=== PATIENT | male | born 1955 | race Caucasian/White ===

== ENCOUNTER 2016-11-12 07:30 | Inpatient (IN) | payer OTHER ==
[~2016-11-12 07:30] MED LIST: CHLORHEXIDINE GLUC HIBICLENS 118 ML BTL TP ONE; ceFAZolin 2 GM/DEXTROSE 100 ML IV ONE
[2016-11-12] MEDS ORDERED: THROMBIN (BOVINE) 20,000 UNIT VIAL TP ONE (09:08)
[2016-11-12] MEDS ORDERED: BACITRACIN 50,000 UNITS/10 ML SYR IRR ONE ×2 (09:08→14:24)
[2016-11-12] MEDS ORDERED: BUPIVACAINE/EPI 0.25% 30 ML SDV ONE (09:08)
[2016-11-12] MEDS ORDERED: CEFAZOLIN 2 GM/DEXTROSE/100 ML BAG IV ONE (09:19)
[2016-11-12] MEDS ORDERED: PROPOFOL/EMULSION 500 MG/50 ML BOTTLE IV ONE ×3 (09:26→16:01)
[2016-11-12] MEDS ORDERED: fentaNYL 250 MCG/5 ML INJ ONE (09:26)
[2016-11-12] MEDS ORDERED: LR 1,000 ML IV ONE (09:30)
[2016-11-12] MEDS ORDERED: MIDAZOLAM 2 MG/2 ML VIAL ONE (10:38)
[2016-11-12] MEDS ORDERED: PANTOPRAZOLE SODIUM 40 MG TAB PO PRN ×2 (10:39→16:29)
[2016-11-12] MEDS ORDERED: DIAZEPAM 5 MG TAB PO PRN (10:40)
[2016-11-12] MEDS ORDERED: ONDANSETRON 4 MG/2 ML VIAL IVP PRN (10:40)
[2016-11-12] MEDS ORDERED: BISACODYL 10 MG SUPP PR PRN (10:40)
[2016-11-12] MEDS ORDERED: TEMAZEPAM 15 MG CAP PO PRN (10:40)
[2016-11-12] MEDS ORDERED: NALOXONE HCL 0.4 MG/ML INJ IVP PRN (10:40)
[2016-11-12] MEDS ORDERED: LACTULOSE 20 GM/30 ML UDCUP PO PRN (10:40)
[2016-11-12] MEDS ORDERED: ACETAMINOPHEN 325 MG TAB PO PRN (10:40)
[2016-11-12] MEDS ORDERED: HYDROmorphONE/DILAUDID 6 MG/30 ML PCA IV PRN (10:40)
[2016-11-12] MEDS ORDERED: oxyCODONE IR 5 MG TAB PO PRN (10:40)
[2016-11-12] MEDS ORDERED: DIAZEPAM 10 MG/2 ML SYR IVP PRN (10:40)
[2016-11-12] MEDS ORDERED: ONDANSETRON DISINTEGRATING 4 MG TAB PO PRN (10:40)
[2016-11-12] MEDS ORDERED: MAGNESIUM HYDROXIDE 30 ML UDCUP PO PRN (10:40)
[2016-11-12] MEDS ORDERED: diphenhydrAMINE 25 MG CAP PO PRN (10:40)
[2016-11-12] MEDS ORDERED: ALBUMIN 5% 250 ML BOTTLE IV ONE (10:44)
[2016-11-12] MEDS ORDERED: DEXMEDETOMIDINE HCL 200 MCG/2 ML VIAL IV ONE (10:45)
[2016-11-12] MEDS ORDERED: NS W/ 20 KCl/L 1,000 ML IV SCH (10:45)
[2016-11-12] MEDS ORDERED: NS IV ONE (11:00)
[2016-11-12] MEDS ORDERED: TRANEXAMIC ACID IV ONE (11:00)
[2016-11-12] MEDS ORDERED: epHEDrine SULFATE 10 MG/ML SYR ONE (11:38)
[2016-11-12] MEDS ORDERED: PHENYLEPHRINE HCL 100 MCG/ML SYR ONE (11:38)
[2016-11-12] MEDS ORDERED: ROCURONIUM 50 MG/5 ML VIAL ONE (11:38)
[2016-11-12] MEDS ORDERED: SODIUM BICARBONATE 50 MEQ/50 ML SYR ONE (13:16)
[2016-11-12] MEDS ORDERED: CALCIUM CHLORIDE 1 GM/10 ML INJ ONE (13:16)
[2016-11-12] MEDS ORDERED: ONDANSETRON 4 MG/2 ML VIAL ONE (13:17)
[2016-11-12] MEDS ORDERED: RANITIDINE 50 MG/2 ML VIAL ONE (13:17)
[2016-11-12] MEDS ORDERED: METOCLOPRAMIDE 10 MG/2 ML VIAL ONE (13:17)
[2016-11-12] MEDS ORDERED: DEXAMETHASONE 4 MG/ML VIAL ONE (13:17)
[2016-11-12] MEDS ORDERED: fentaNYL 100 MCG/2 ML INJ ONE (17:57)
[2016-11-12] MEDS ORDERED: HYDROmorphONE/DILAUDID 1 MG/ML SYR ONE (17:57)
--- NOTE | 2016-11-12 19:08 | GOP ---
[f rep st] OPERATIVE REPORT DATE OF OPERATION: 11/12/2016 SURGEON: Kiersten Gamez MD PREOPERATIVE DIAGNOSIS: 1. Degenerative scoliosis. 2. Severe stenosis at L3-4, L4-5, L5-S1. 3. Terrible right foraminal stenosis at L5-S1 with right L5 radiculopathy. 4. Complete obliteration of the right L5-S1 foramina. 5. Severe disk degenerative disease at L3-4 4-5, and 5-1. 6. He also was having some left-sided radicular complaints, as well, that were not as severe as the right. POSTOPERATIVE DIAGNOSIS: 1. Degenerative scoliosis. 2. Severe stenosis at L3-4, L4-5, L5-S1. 3. Terrible right foraminal stenosis at L5-S1 with right L5 radiculopathy. 4. Complete obliteration of the right L5-S1 foramina. 5. Severe disk degenerative disease at L3-4 4-5, and 5-1. 6. He also was having some left-sided radicular complaints, as well, that were not as severe as the right. PROCEDURE PERFORMED: L3-4 L4-5, and L5-S1 decompressions with posterolateral and intervertebral art hrodesis with a central and left-sided facetectomy and decompression L3-4, bilateral decompressions L4-5 with a left-sided complete facetectomy and a right marilin decompression at L5-S1 with a complete right facetectomy and wide foraminotomy, as well as removal of a foraminal disk fragment ([id number], 226 34 x2), posterior segmental instrumentation L3, L4, L5, and S1 ([id number]), microscope, spinal stereotax y, same-incision bone graft harvest, placement of expandable mechanical intervertebral de vice at L3-4, 4-5, and 5-1. FINDINGS: DESCRIPTION OF PROCEDURE: Patient was taken to the operating room and placed in supine position. G eneral anesthesia was begun. He was flipped prone onto the Malcolm table. Care was taken to pad al l points of contact. His back was sterilely prepped and draped in the usual fashion. A localizing x-ray was taken. We made about an 8 to 8.5 cm incision above the L3-4, 4-5, and 5-1interspaces. Th e subcutaneous tissue was dissected using Bovie cautery down to the fascia, and a Subperiosteal diss ection was made down the L2. Inferior L2 lamina, L3, 4, 5, and S1 laminae were exposed. There was just remarkable facet arthropathy with the left side being concave at 3-4/4-5 and the facet joints b eing located very deep with the spinous processes projecting over the facet joints on the left side. At L3-4/L4 5 on the right side, the facet joints presented themselves more superficially and were quite hypertrophic. L5-S1 demonstrated bilateral facet arthropathy. We used a high-speed drill to denude these facet joints. We preserved the L2-3 facet joint rostrally. We decorticated the transv erse processes at L3, L4, L5, and the sacrum. We then performed an O-arm spin, and using frameless Stealth stereotaxy, we placed pedicle screws bilaterally at L5, S1, L4, and L3. We stimulated these . The left L3 screw stimulated at 13 mA; this is the lowest. An O-arm spin was made, and this scre w was immediately adjacent to the medial pedicle of L3. I removed the screw, probed the hole with a ball-tipped probe, and it appeared to be a completely solid cortical hole all the way through the p edicle without medial breach. There was no evidence of such a breach on circumferential probing wit h a ball-tip probe. We replaced this screw and got a stim number of 11. We therefore removed the s crew, and I just planned a new trajectory. His bone quality was excellent. I placed a screw in a n ew trajectory, and the stimulation numbers were above 15. We shot AP and lateral x-ray after placing the screw, and it looked like excellent positioning on the left L3 screw. We took a transitional r od and distracted at L5-S1 temporarily, demonstrating good motion at L5-S1. We then took 100 mm laz , put it down on the right, and distracted very substantially (over a centimeter) at L5-S1, reducing much of the degenerative kink at L5-S1 on the right side. We then went to the left side where we p laced another laz and distracted between L3-4/L4-5 on the left, and then locked this laz in place, a nd we shot an x-ray. I wanted to get a little more correction on the left-hand side as well at L3-4 , and a little more on the right at L5-S1. We relaxed our distraction on the rods, and then did do this. We achieved greater distraction at L5-S1 and greater direction on the left at L3-4, final tig htening the cap screws according to company specification, shot an AP and lateral x-ray, and there w as good reduction of his degenerative scoliotic curve. We then harvested the L5 and L4 spinous proc ess for autologous grafting purposes, and we harvested most of the L3 spinous process. We drilled a bilateral marilin at L4-5, and a right hemilaminectomy at L5-S1, and a left hemilaminectomy of L3-4. The hemilaminectomies at each of those levels was more than a hemilaminectomy; they involved about 3 /4 of the lamina, so I was able to get good central decompression at both of those levels. We cristina nued drilling and harvested all this bone for autologous grafting purposes. We then used a Kerrison punch to decompress the central spinal canal at L5-S1 on the right-hand side. The IAP of L5 was co mpletely adherent to the dura, and this was a very challenging dissection. I elected to leave it un til later in the case. I went up to L4-5 where I performed bilateral laminectomies; here, while the re was very severe stenosis, the dura was not adherent to the ligamentum flavum or the hypertrophic facet joints. We achieved an excellent decompression at that level, and then went to 3-4, where we found similar findings. There was stenosis, and we decompressed the left more than right. We perfo rmed a left L3-4 facetectomy and decompressed the exiting L3 nerve root. We then swept the thecal s ac medially and removed the L3-4 disk from a left-sided approach, as well as the cartilaginous endpl ates. We roughened needs to create arthrodesis. We then did likewise at L4-5, where we swept the t hecal sac medially; from a left-sided approach, we radically decompressed the left neural foramen fo r the exiting L4 nerve root by removing the facet joints. We then removed the cartilaginous endplat es and then roughened the subchondral bone to create arthrodesis. We sized each of these and chose a 7 x 28 mm device at L3-4 and then a 9 x 28 mm device at L4-5. We went to the right-hand side now at L5-S1 where we worked our way circumferentially around the IAP of L5, beginning at the L5 pedicle , following the L5 nerve into its neural foramen. We then came inferiorly down below the S1 pedicle , decompressing centrally and working our way out to the S1 pedicle. We then marched along the doug in of the S1 pedicle into the neural foramen and completely freed the compressive fragments in the c anal. It was very firmly adherent to the dura. We took a #15 blade knife and began to divide the a ttachments and removed this entire hunk of material out of the right lateral recess. It was bobby sive for both the L5 and the S1 root. A small portion of the ligamentum flavum was left on the dura centrally where it is stuck, but this was not compressive whatsoever. We identified the exiting L5 nerve root, incised the L5-S1 disk, removed the disk and the cartilaginous endplates. This level t ook much longer than L3-4 or 4-5, as we fractured the foraminal disk fragments down into the disk sp valery away from the L5 nerve root to an area where we could safely pick them up out of the disk space itself. We irrigated the disk space with antibiotic saline. Got a Sizer and sized for an 8 x 20 mm device at this level. We prepared each of the implants and inserted them under fluoroscopic guidan ce along with BMP and bone autograft, and then expanded them under fluoroscopic guidance. They were all in excellent position. There was good reduction of the degenerative scoliotic curve. We decor ticated all remaining posterolateral bone to finish our arthrodesis, and placed BMP and bony allogra ft posterolaterally bilaterally. We checked the tightness on our screws, placed a CrossLink, and th en placed a subfascial drain and closed the incision in multiple layers using Vicryl sutures. A gra nd total of 4.0 mg of BMP was used for the entire 3-level surgery. There were no other complication s. COMPLICATIONS: None. INSTRUMENTATION USED: Nemedia system with Elevate cages: A 7 x 28 mm cage at 3-4, a 9 mm cage at 4-5, and an 8 mm cage at 5-1. 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 It was unresponsive to conservative measures, and his MRI clearly showed the reason for this, and se rial MRIs demonstrated progression of a degenerative scoliotic curve. There is significant left lat eral listhesis of 4 on 5 measuring over a centimeter. There is terrible right foraminal stenosis a t L5-S1. There is [id number]-ab-[id number] severe left foraminal stenosis at L4-5 and moderately severe l eft foraminal stenosis at L3-4. There is severe central stenosis at L4-5 and left-sided more than r ight-sided stenosis at 3-4, and right greater than left foraminal, as well as lateral recess stenosi s at L5-S1. I suggested at one point, a 2-level fusion. The challenge with this approach, however, is the apex of his degenerative scoliotic curve was right at the L3-4 segment, and after reviewing it more carefully, I decided that we need to at least include the L3-4 level. He had terrible lopez es at L1-2 and 2-3 above, and indeed many surgeons might include these in the correction, but I want ed to try to minimize the amount of surgery that he got as this lowers the complication rate and imp roves success. He understood that down the road he may require additional surgery. He knew there w as risk of pseudoarthrosis, adjacent segment disease, nerve injury, and spinal fluid leak, and he kn ew that there was a chance he may continue to have symptoms despite decompression and despite fusion . He accepted all these and wanted to proceed. /[id number]/MODL
--- NOTE | 2016-11-12 19:08 | SOAPPROG ---
SOAP Progress Note Assessment/Plan: Post Op Visit: S: Awake and alert. Pt with expected lower back pain O: AFVSS/PERRLA/EOMI no droop CN 2-12 grossly intact +lt touch 5/5 BUE/BLE = CDI JACE in place A/P: 60 yo male that is s/p TLIF L3-S1 -orders in place -call with any questions or concerns -pt seen by Dr Gamez as well 11/12/16 19:06 Objective: Vital Signs Temp Pulse Resp BP Pulse Ox 37.0 C 108 H 16 94 11/12/16 18:28 11/12/16 18:28 11/12/16 18:28 11/12/16 18:28 11/11/16 11/12/16 11/13/16 05:59 05:59 05:59 Intake Total 2700 Output Total 585 Balance 2115 ICD10 Worksheet Patient Problems: Problems Problem Status Onset Arthrodesis status Acute Lumbar radicular pain Acute Lumbar stenosis Acute Arthritis of left knee Acute - ICD10 Problem Qualifiers (1) Lumbar stenosis (2) Lumbar radicular pain (3) Arthrodesis status
[2016-11-12] MEDS: HYDROmorphONE/DILAUDID 1 MG/ML SYR IVP PRN ×2 (19:48→23:56)
[2016-11-12] MEDS: HYDROCODONE/APAP 10/325 TAB PO PRN ×2 (19:49→23:56)
[2016-11-12] MEDS: TAMSULOSIN HCL 0.4 MG CAP PO SCH (19:49)
[2016-11-12] MEDS ORDERED: NON-FORMULARY NEW DRUG (Losartan Potassium [Cozaar] 100 MG) PO SCH (21:00)
[2016-11-12] MEDS: FAMOTIDINE 20 MG/NACL 50 ML IV SCH (21:42)
[2016-11-12] MEDS: morphINE SR 15 MG TAB PO SCH (21:44)
[2016-11-12] MEDS: LOSARTAN POTASSIUM 50 MG TAB PO SCH (21:44)
[2016-11-12] MEDS: METHOCARBAMOL 750 MG TAB PO PRN (21:46)
[2016-11-12] MEDS: SENNOSIDES/DOCUSATE SODIUM TAB PO SCH (21:47)
[2016-11-13 05:35] LABS: % IMMATURE GRANULYOCYTES 0.6 % (0.0-1.1); ABSOLUTE IMMATURE GRANULOCYTES 0.08 10^3/uL (0.00-0.10); ADD DIFF? NO; ADD MORPH? NO; ADD SCAN? NO; ATYPICAL LYMPHOCYTE FLAG 0 (0-99); FRAGMENT RBC FLAG 0 (0-99); HEMATOCRIT 39.2 % (40.0-51.0); HEMOGLOBIN 13.1 g/dL (13.7-17.5); LEFT SHIFT FLG 0 (0-99); LIPEMIA HEMOLYSIS FLAG 80 (0-99); MEAN CELL HEMOGLOBIN 29.2 pg (27.9-34.1); MEAN CELL HEMOGLOBIN CONCENTR. 33.4 g/dL (32.4-36.7); MEAN CELL VOLUME 87.5 fL (81.5-99.8); MEAN PLATELET VOLUME 10.5 fL (8.7-11.7); PLATELET CLUMPS FLAG 0 (0-99); PLATELET COUNT 171 10^3/uL (150-400); RED BLOOD CELL COUNT 4.48 10^6/uL (4.40-6.38); RED CELL DISTRIBUTION WIDTH 13.6 % (11.5-15.2)
[2016-11-13 05:47] LABS: ANION GAP 10 mEq/L (8-16); CALCIUM 8.4 mg/dL (8.5-10.4); CARBON DIOXIDE 22 mEq/l (22-31); CHLORIDE 108 mEq/L (97-110); GLOMERULAR FILTRATION RATE > 60; GLUCOSE 133 mg/dL (70-100); POTASSIUM 5.2 mEq/L (3.5-5.2); SODIUM 140 mEq/L (134-144)
[2016-11-13] MEDS: HYDROmorphONE/DILAUDID 1 MG/ML SYR IVP PRN ×2 (06:21→11:41)
[2016-11-13] MEDS: METHOCARBAMOL 750 MG TAB PO PRN ×2 (06:21→17:54)
--- NOTE | 2016-11-13 07:01 | NEUSURGPN ---
Date of Surgery: 11/12/16 Post Op Day: 1 Assessment/Plan: Assessment: 60 yo male that is s/p TLIF L3-S1 POD #1 Plan: -s/p TLIF L3-S1: pt with expected lower back pain, legs feel better. Pt is happy with results to this point -Post op xrays pending -brace fits well and will wear when out of bed -PT/OT today -work on switch to PO from IV meds -JACE still productive -pt seen by Dr Gamez as well -orders in place -call with any questions or concerns -warning signs given 11/12/16 19:06 Subjective: Awake and alert. NAD. Eating/drinking and voiding. No f/c/n/v/d. No blount/neck/ chest/abd or gu complaints. Objective: AFVSS/PERRLA/EOMI no droop CN 2-12 grossly intact +lt touch 5/5 BUE/BLE = CDI JACE in place Neuro Check Frequency: per routine Urinary Catheter in Place: No Catheter Insertion Date: 11/12/16 - Physician Discussed Patient with Dr.: Franco Patient Seen by : Franco Neurosurgery Physical Exam - Vitals, I&O, Labs I and O 11/12/16 11/13/16 11/14/16 05:59 05:59 05:59 Intake Total 3200 Output Total 1705 390 Balance 1495 -390 Intake: Oral (ml) 500 IV Intake (ml) 2700 Output: Urine (ml) 1025 300 Catheter 1025 300 Estimated Blood Loss (ml) 450 Wound Drainage (ml) 230 90 #1 Back Malcolm Ellsworth 230 90 Vital Signs Temp Pulse Resp BP Pulse Ox 37.0 C 68 17 117/65 94 11/13/16 04:00 11/13/16 04:00 11/13/16 04:00 11/13/16 04:00 11/13/16 04:00 Laboratory Results 11/13/16 04:50 11/13/16 04:50 ICD10 Worksheet Patient Problems: Problems Problem Status Onset Arthrodesis status Acute Lumbar radicular pain Acute Lumbar stenosis Acute Arthritis of left knee Acute - ICD10 Problem Qualifiers (1) Lumbar stenosis (2) Lumbar radicular pain (3) Arthrodesis status
[2016-11-13] MEDS: SENNOSIDES/DOCUSATE SODIUM TAB PO SCH ×2 (07:43→21:05)
[2016-11-13] MEDS: morphINE SR 15 MG TAB PO SCH ×2 (07:43→21:05)
[2016-11-13] MEDS: TAMSULOSIN HCL 0.4 MG CAP PO SCH (07:43)
[2016-11-13] MEDS: FAMOTIDINE 20 MG/NACL 50 ML IV SCH (07:44)
[2016-11-13] MEDS: HYDROCODONE/APAP 10/325 TAB PO PRN ×3 (07:44→17:54)
[2016-11-13] MEDS: FAMOTIDINE 20 MG TAB PO SCH (21:05)
[2016-11-13] MEDS: LOSARTAN POTASSIUM 50 MG TAB PO SCH (21:05)
[2016-11-14] MEDS: METHOCARBAMOL 750 MG TAB PO PRN (06:32)
[2016-11-14] MEDS: HYDROCODONE/APAP 10/325 TAB PO PRN ×2 (06:32→10:51)
--- NOTE | 2016-11-14 07:34 | NEUSURGPN ---
Date of Surgery: 11/12/16 Post Op Day: 2 Assessment/Plan: Assessment: 60 yo male that is s/p TLIF L3-S1 POD #2 Plan: -s/p TLIF L3-S1: pt with expected lower back pain, legs feel better. Pt continues to be happy with results to this point -Post op xrays look good -brace fits well and will wear when out of bed-no skin issues -PT/OT today -PO meds -JACE still productive will see if Dr Gamez wants it out -pt seen by Dr Gamez as well -orders in place -call with any questions or concerns -warning signs given 11/12/16 19:06 Subjective: Awake and alert. NAD. Pt with expected lower back pain. No blount/neck/chest/abd or gu complaints. Objective: AFVSS/PERRLA/EOMI no droop CN 2-12 grossly intact +lt touch 5/5 BUE/BLE = CDI JACE in place Neuro Check Frequency: per routine Urinary Catheter in Place: No Catheter Insertion Date: 11/12/16 - Physician Discussed Patient with DrKeisha: Franco Patient Seen by : Franco Neurosurgery Physical Exam - Vitals, I&O, Labs I and O 11/13/16 11/14/16 11/15/16 05:59 05:59 05:59 Intake Total 3200 500 Output Total 1705 1400 Balance 1495 -900 Intake: Oral (ml) 500 500 IV Intake (ml) 2700 0 Output: Urine (ml) 1025 800 Catheter 1025 800 Estimated Blood Loss (ml) 450 Wound Drainage (ml) 230 600 #1 Back Malcolm Ellsworth 230 600 Other: Intake Quantity Yes Sufficient Number of Voids Catheter 1 Vital Signs Temp Pulse Resp BP Pulse Ox 36.5 C 59 L 16 127/70 H 92 11/14/16 03:23 11/14/16 03:23 11/14/16 03:23 11/14/16 03:23 11/14/16 03:23 Laboratory Results 11/13/16 04:50 11/13/16 04:50 ICD10 Worksheet Patient Problems: Problems Problem Status Onset Arthrodesis status Acute Lumbar radicular pain Acute Lumbar stenosis Acute Arthritis of left knee Acute - ICD10 Problem Qualifiers (1) Lumbar stenosis (2) Lumbar radicular pain (3) Arthrodesis status
[2016-11-14] MEDS: SENNOSIDES/DOCUSATE SODIUM TAB PO SCH ×2 (08:41→21:14)
[2016-11-14] MEDS: TAMSULOSIN HCL 0.4 MG CAP PO SCH (08:41)
[2016-11-14] MEDS: FAMOTIDINE 20 MG TAB PO SCH ×2 (08:41→21:14)
[2016-11-14] MEDS: morphINE SR 15 MG TAB PO SCH ×2 (08:41→21:14)
[2016-11-14] MEDS: POLYETHYLENE GLYCOL 3350 17 GM PKT PO PRN (21:13)
[2016-11-14] MEDS: LOSARTAN POTASSIUM 50 MG TAB PO SCH (21:14)
[2016-11-15] MEDS: METHOCARBAMOL 750 MG TAB PO PRN (06:31)
--- NOTE | 2016-11-15 08:04 | NEUSURGPN ---
Assessment/Plan: Assessment: 60 yo male that is s/p TLIF L3-S1 POD #3 Plan: -s/p TLIF L3-S1: pt with expected lower back pain, legs feel better. Pt continues to be happy with results to this point -Post op xrays look good -brace fits well and will wear when out of bed-no skin issues -PT/OT today -PO meds -JACE was removed -Lovenox today -Bowel protocol -call with any questions or concerns -Likely DC today pending clinical course Subjective: Pt resting in bed. No BM yet but thinks he will have one soon. Objective: AAOx3 NAD VSS MAEx4 Motor 5/5 BLE +LT Incision cdi Urinary Catheter in Place: No Catheter Insertion Date: 11/12/16 Neurosurgery Physical Exam - Vitals, I&O, Labs I and O 11/14/16 11/15/16 11/16/16 05:59 05:59 05:59 Intake Total 500 1000 Output Total 1400 Balance -900 1000 Intake: Oral (ml) 500 1000 IV Intake (ml) 0 Output: Urine (ml) 800 Catheter 800 Wound Drainage (ml) 600 #1 Back Malcolm Ellsworth 600 Other: Intake Quantity Yes Yes Sufficient Number of Voids Catheter 1 1 Toilet 1 Vital Signs Temp Pulse Resp BP Pulse Ox 37.6 C 101 H 16 125/72 H 96 11/15/16 00:45 11/14/16 23:50 11/14/16 23:50 11/14/16 23:50 11/14/16 23:50 Laboratory Results 11/13/16 04:50 11/13/16 04:50 ICD10 Worksheet Patient Problems: Problems Problem Status Onset Arthrodesis status Acute Lumbar radicular pain Acute Lumbar stenosis Acute Arthritis of left knee Acute
[2016-11-15 08:07] VITALS: RESP 15
[2016-11-15] MEDS: morphINE SR 15 MG TAB PO SCH (08:28)
[2016-11-15] MEDS: TAMSULOSIN HCL 0.4 MG CAP PO SCH (08:29)
[2016-11-15] MEDS: FAMOTIDINE 20 MG TAB PO SCH (08:29)
[2016-11-15] MEDS: SENNOSIDES/DOCUSATE SODIUM TAB PO SCH (08:29)
[2016-11-15] MEDS: POLYETHYLENE GLYCOL 3350 17 GM PKT PO PRN (08:30)
[2016-11-15] MEDS ORDERED: ENOXAPARIN 40 MG/0.4 ML SYR SC SCH (09:00)
[2016-11-15 12:11] VITALS: BP 118/73; PULSE 106; TEMP 99.1; O2SAT 95
[2016-11-15] MEDS: HYDROCODONE/APAP 10/325 TAB PO PRN (12:27)
--- NOTE | 2016-12-02 21:57 | GDS ---
[f rep st] DISCHARGE SUMMARY PRIMARY DIAGNOSES: Degenerative scoliosis. Severe stenosis L3-4, L4-5, L5-S1. Terrible right fora kayden stenosis at L5-S1, with right L5 radiculopathy. Complete obliteration of the right L5-S1 neur o foramen. Severe degenerative disc disease L3-4, L4-5, L5-S1. All subsequent planes of left-sided radicular complaints that were not as severe as the right. OPERATION/PROCEDURES: L3-4, L4-5, L5-S1 decompression and posterior lateral intervertebral arthrode sis, with central and left-sided facetectomy and decompression at L3-4, bilateral decompressions at L4-5, with a left-sided complete facetectomy, and right marilin-decompression L5-S1, with a complete ri ght facetectomy and wide foraminotomy, as well as removal of foraminal disc fragments. Posterior se gmental instrumentation, L3, L4, L5 and S1. Use of microscope spinal stereotaxis same-incision bone graft harvest, and placement of expandable biomechanical intervertebral device at L3-4, L4-5, and L 5-S1, occurred with Dr. Cezar Gamez at [facility] on 11/12/2016. 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 He presented with recalcitrant right L5 radiculopathy, was unrespon sive to conservative measures. An MRI clearly showed the reason for this. Serial MRIs demonstrated progression of a degenerative scoliotic curve. There is a significant left lateral listhesis of L4 on L5 measuring over a centimeter. There is terrible right foraminal stenosis, L5-S1, moderate-to- mildly severe left foraminal stenosis at L4-5, and moderately severe left foraminal stenosis at L3-4 . There is severe central canal stenosis at L4-5, and left more than right stenosis at L3-4, ____ and right greater than left in the right greater than left foraminal stenosis, as well as later al recess stenosis at L5-S1. A suggestion for a three-level fusion was given to the patient. He un derwent the above-mentioned procedure, and tolerated it fine. He was admitted postoperatively and worked with physical therapy. On postoperative day #1, on 11/13, he underwent x-rays of the lumbar spine, which showed status post instrumentation and fusion of the lumbar spine from prior study without hardware complication. The patient was seen on a daily basis. He worked with PT and OT. On 11/15/2016, he met criteria for discharge, and was discharged accordingly. He was happy with the results thus far. His postoperative x-rays look good. His bra ce was fitting well, and will wear this whenever out of bed. He was started on Lovenox prophylactic ally. He also had a JACE, which was removed. He was on a bowel protocol, and was doing fine with bay t. He was discharged without incident. CONSULTATIONS: None. COMPLICATIONS: None. DISCHARGE CONDITION: Stable and improved. DISCHARGE INSTRUCTIONS: Standard discharge instructions given to the patient following instrumented lumbar fusion. We talked about worsening symptoms, new pain, weakness, numbness, tingling, loss of bowel or bladder control, problems with gait or balance. We talked about when to call or return. He will wear his brace whenever out of bed. He should avoid any anti-inflammatory drugs. He should avoid any bending, twisting or lifting. The patient understands and agrees. Will likely follow up with us at 2 weeks and at 2 months, 3-6 months, 9 months to a year, a [id number]-rgf-d-half and 2 years w ith x-rays when clinically appropriate. All questions and concerns were answered. /[id number]/MODL
== END 2016-11-15 16:04 | disposition home or self-care (01) | DRG 460 ==
LOC: F3E 08:29 → F3N 11:19
PROVIDERS: ADMIT Neurological Surgery; ATTEND Neurological Surgery
PROC: 0SB40ZZ Excision of Lumbosacral Disc, Open Approach (ICD-10-PCS; principal; 2016-11-12 10:30)
PROC: 0SG30AJ Fusion of Lumbosacral Joint with Interbody Fusion Device, Posterior Approach, Anterior Column, Open Approach (ICD-10-PCS; principal; 2016-11-12 10:30)
PROC: 0SG10AJ Fusion of 2 or more Lumbar Vertebral Joints with Interbody Fusion Device, Posterior Approach, Anterior Column, Open Approach (ICD-10-PCS; principal; 2016-11-12 10:30)
PROC: 00NY0ZZ Release Lumbar Spinal Cord, Open Approach (ICD-10-PCS; principal; 2016-11-12 10:30)
PROC: 3E0U0GB Introduction of Recombinant Bone Morphogenetic Protein into Joints, Open Approach (ICD-10-PCS; principal; 2016-11-12 10:30)
PROC: 0SG1071 Fusion of 2 or more Lumbar Vertebral Joints with Autologous Tissue Substitute, Posterior Approach, Posterior Column, Open Approach (ICD-10-PCS; principal; 2016-11-12 10:30)
PROC: 0SB20ZZ Excision of Lumbar Vertebral Disc, Open Approach (ICD-10-PCS; principal; 2016-11-12 10:30)
PROC: 0SG3071 Fusion of Lumbosacral Joint with Autologous Tissue Substitute, Posterior Approach, Posterior Column, Open Approach (ICD-10-PCS; principal; 2016-11-12 10:30)
DX: M43.16 Spondylolisthesis, lumbar region (principal); M41.26 Other idiopathic scoliosis, lumbar region; M48.06 Spinal stenosis, lumbar region; I10 Essential (primary) hypertension
CPT/HCPCS: 97116-GP; 97161-GP; 97166-GO; 97535-GO; C1713; J0690; J1100; J1170; J1650; J2250; J2370; J2405; J2704; J2765; J2780; J3010; P9041

== ENCOUNTER → 2016-12-29 | Outpatient (CLI) | payer OTHER | LOC: FIMAGING 09:40 | PROVIDERS: ATTEND Nurse Practitioner | DX: M41.26 Other idiopathic scoliosis, lumbar region (principal); M43.16 Spondylolisthesis, lumbar region; M48.06 Spinal stenosis, lumbar region; Z98.1 Arthrodesis status ==

== ENCOUNTER → 2017-03-02 | Outpatient (CLI) | payer OTHER | LOC: FLAB 09:55 → FIMAGING 09:55 → EDSTATUS 11:55 | PROVIDERS: ATTEND Nurse Practitioner | DX: Z09 Encounter for follow-up examination after completed treatment for conditions other than malignant neoplasm (principal); Z98.1 Arthrodesis status ==

== ENCOUNTER → 2017-05-12 | Outpatient (CLI) | payer OTHER | LOC: FIMAGING 10:41 | PROVIDERS: ATTEND Nurse Practitioner | DX: Z09 Encounter for follow-up examination after completed treatment for conditions other than malignant neoplasm (principal); Z98.1 Arthrodesis status ==

== ENCOUNTER 2017-06-11 17:49 | Emergency (ER) | payer OTHER ==
[2017-06-11] MEDS ORDERED: NS 1,000 ML IV ONE ×4 (19:44)
--- NOTE | 2017-06-11 19:46 | EDPHY ---
H & P Time Seen by Provider: 06/11/17 18:58 HPI/ROS: CHIEF COMPLAINT: Abdominal pain HISTORY OF PRESENT ILLNESS: Patient had similar symptoms 6 months ago and then 1 month ago but all was resolved after an hour and he was able to sleep and it would be gone when he woke up. At 4:30 a.m. he woke up with consistent and then crampy central abdominal pain which does not radiate. Associated with single episode of nausea vomiting and with 2 normal bowel movements. No melena or coffee-ground emesis or bright red blood per rectum. He did take nonsteroidal today but is essentially been off them since his fusion on his back 7 months ago. Symptoms moderate. Worse with eating or drinking today. He ate 6 Triscuits, and that made him worse. REVIEW OF SYSTEMS: Eye: no change in vision ENT: no sore throat Cardiac: no chest pain or syncope Pulmonary: no cough or SOB Abdomen: HPI Musculoskeletal: no back pain Skin: no rash Neuro: no headache Constitutional: no fever : no urinary symptoms A comprehensive 10 point review of systems is otherwise negative aside from elements mentioned in the history of present illness. PAST MEDICAL HISTORY: Appendectomy, pseudogout, hepatitis-C. Migraines, appendectomy, tonsillectomy. Bilateral knee surgery and bilateral cataracts, spine fusion 7 months ago Social history: No alcohol General Appearance: Alert and conversant, cooperative. Eyes: No scleral icterus. ENT, Mouth: Normal mucous membranes. Respiratory: Normal respiratory effort, breath sounds equal, lungs are clear to auscultation. Cardiovascular: Regular rate and rhythm. Gastrointestinal: Epigastric tenderness but negative Beckett sign. No rebound or guarding. Bowel sounds are present. Neurological: Alert and oriented x3. Normally conversant. Face symmetric, normal movement and sensation in all extremities. Skin: Warm and dry, no rashes. Musculoskeletal: No peripheral edema and no joint swelling. Psychiatric: Not agitated. Emergency Department course/MDM: CT scanning discussed and consented. I-STAT creatinine 1.0. 2054: Negative CT per Dr. Abreu, results discussed with the patient. 2125: Normal urine, normal EKG. Plan to discharge with outpatient primary care or GI follow-up. 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 White blood cell count noted, they wonder if it is related to food that he ate which is possible. At this point I think acute serious bacterial illness is low given picture of his entire workup Smoking Status: Former smoker Constitutional: Initial Vital Signs Temperature (C) 37 C 06/11/17 17:50 Heart Rate 88 06/11/17 17:50 Respiratory Rate 16 06/11/17 17:50 Blood Pressure 154/90 H 06/11/17 17:50 O2 Sat (%) 95 06/11/17 17:50 O2 Delivery Mode Room Air O2 (L/minute) 2 Allergies/Adverse Reactions: No Known Allergies Allergy (Verified 06/11/17 17:59) Home Medications: Medication Instructions Recorded Losartan Potassium [Cozaar] 100 mg PO HS 12/28/13 Pantoprazole Sodium [Protonix 40mg 20 mg PO HS PRN 02/13/16 (*)] amLODIPine BESYLATE [Norvasc 10 mg 10 mg PO HS 02/13/16 (*)] GABAPENTIN 400 mg PO 06/11/17 Naproxen 250 mg PO 06/11/17 Tamsulosin HCl [Flomax 0.4 MG (*)] 0.4 mg PO 06/11/17 Medical Decision Making - Diagnostics EKG Interpretation: 12-lead EKG interpreted by me; official reading is in trace master. My interpretation is sinus rhythm rate 79 with low frontal voltage otherwise normal. Imaging Results: Imaging Impressions Abdomen CT 06/11/17 19:44 Impression: 1. No explanation for acute epigastric pain. 2. Incidental right adrenal solid mass at 2 x 2 cm, containing punctate central calcification. This is likely a benign lesion. Follow-up CT scan in 12 months can be considered. If additional characterization is needed at this time, MRI following adrenal protocol with and without contrast is suggested. 3. Please see above otherwise. Findings and recommendations discussed with Dr. Jose Juan Young at 2050 hour, 2016. Final report concurs with initial preliminary interpretation. - Data Points Laboratory Results: Laboratory Results 06/11/17 19:40 06/11/17 19:40 06/11/17 06/11/17 06/11/17 21:00 19:40 19:40 WBC 15.86 10^3/uL H 10^3/uL (3.80-9.50) RBC 6.51 10^6/uL H 10^6/uL (4.40-6.38) Hgb 17.3 g/dL g/dL (13.7-17.5) POC Hgb Hct 51.5 % H % (40.0-51.0) POC Hct MCV 79.1 fL L fL (81.5-99.8) MCH 26.6 pg L pg (27.9-34.1) MCHC 33.6 g/dL g/dL (32.4-36.7) RDW 16.8 % H % (11.5-15.2) Plt Count 214 10^3/uL 10^3/uL (150-400) MPV 10.1 fL fL (8.7-11.7) Neut % (Auto) 79.8 % H % (39.3-74.2) Lymph % (Auto) 9.5 % L % (15.0-45.0) [place] % (Auto) 9.0 % % (4.5-13.0) Eos % (Auto) 0.6 % % (0.6-7.6) Baso % (Auto) 0.3 % % (0.3-1.7) Nucleat RBC Rel Count 0.0 % % (0.0-0.2) Absolute Neuts (auto) 12.67 10^3/uL H 10^3/uL (1.70-6.50) Absolute Lymphs (auto) 1.51 10^3/uL 10^3/uL (1.00-3.00) Absolute Monos (auto) 1.42 10^3/uL H 10^3/uL (0.30-0.80) Absolute Eos (auto) 0.10 10^3/uL 10^3/uL (0.03-0.40) Absolute Basos (auto) 0.04 10^3/uL 10^3/uL (0.02-0.10) Absolute Nucleated RBC 0.00 10^3/uL 10^3/uL (0-0.01) Immature Gran % 0.8 % % (0.0-1.1) Immature Gran # 0.12 10^3/uL H 10^3/uL (0.00-0.10) POC Sodium Sodium 138 mEq/L mEq/L (134-144) POC Potassium Potassium 4.2 mEq/L mEq/L (3.5-5.2) POC Chloride Chloride 105 mEq/L mEq/L (97-110) Carbon Dioxide 19 mEq/l L mEq/l (22-31) Anion Gap 14 mEq/L mEq/L (8-16) POC BUN BUN 18 mg/dL mg/dL (7-23) Creatinine 1.0 mg/dL mg/dL (0.7-1.3) POC Creatinine Estimated GFR > 60 Glucose 83 mg/dL mg/dL (70-100) POC Glucose Calcium 9.4 mg/dL mg/dL (8.5-10.4) Total Bilirubin 1.4 mg/dL mg/dL (0.1-1.4) Conjugated Bilirubin 0.3 mg/dL mg/dL (0.0-0.5) Unconjugated Bilirubin 1.1 mg/dL mg/dL (0.0-1.1) AST 19 IU/L IU/L (17-59) ALT 31 IU/L IU/L (21-72) Alkaline Phosphatase 71 IU/L IU/L (38-126) Total Protein 7.2 g/dL g/dL (6.3-8.2) Albumin 4.6 g/dL g/dL (3.5-5.0) Lipase 21 IU/L L IU/L (23-300) Urine Color PALE YELLOW Urine Appearance CLEAR Urine pH 5.0 (5.0-7.5) Ur Specific [place] > 1.035 H (1.002-1.030) Urine Protein NEGATIVE (NEGATIVE) Urine Ketones NEGATIVE (NEGATIVE) Urine Blood NEGATIVE (NEGATIVE) Urine Nitrate NEGATIVE (NEGATIVE) Urine Bilirubin NEGATIVE (NEGATIVE) Urine Urobilinogen NEGATIVE EU EU (0.2-1.0) Ur Leukocyte Esterase NEGATIVE (NEGATIVE) Urine Glucose NEGATIVE (NEGATIVE) 06/11/17 19:35 WBC RBC Hgb POC Hgb 18.4 gm/dL H gm/dL (13.7-17.5) Hct POC Hct 54 % H % (40-51) MCV MCH MCHC RDW Plt Count MPV Neut % (Auto) Lymph % (Auto) [place] % (Auto) Eos % (Auto) Baso % (Auto) Nucleat RBC Rel Count Absolute Neuts (auto) Absolute Lymphs (auto) Absolute Monos (auto) Absolute Eos (auto) Absolute Basos (auto) Absolute Nucleated RBC Immature Gran % Immature Gran # POC Sodium 141 mEq/L mEq/L (134-144) Sodium POC Potassium 3.9 mEq/L mEq/L (3.3-5.0) Potassium POC Chloride 108 mEq/L mEq/L (97-110) Chloride Carbon Dioxide Anion Gap POC BUN 20 mg/dL mg/dL (7-23) BUN Creatinine POC Creatinine 1.0 mg/dL mg/dL (0.7-1.3) Estimated GFR Glucose POC Glucose 85 mg/dL mg/dL (70-100) Calcium Total Bilirubin Conjugated Bilirubin Unconjugated Bilirubin AST ALT Alkaline Phosphatase Total Protein Albumin Lipase Urine Color Urine Appearance Urine pH Ur Specific [place] Urine Protein Urine Ketones Urine Blood Urine Nitrate Urine Bilirubin Urine Urobilinogen Ur Leukocyte Esterase Urine Glucose Medications Given: Discontinued Medications Hydromorphone HCl (Dilaudid) 0.5 mg IVP EDNOW ONE Stop: 06/11/17 19:53 Last Admin: 06/11/17 19:59 Dose: 0.5 mg Sodium Chloride (Ns) 1,000 mls @ 0 mls/hr IV EDNOW ONE; Wide Open PRN Reason: Protocol Stop: 06/11/17 19:45 Last Admin: 06/11/17 19:58 Dose: 1,000 mls Point of Care Test Results: 06/11/17 19:35 POC Sodium 141 POC Potassium 3.9 POC Chloride 108 POC BUN 20 POC Creatinine 1.0 POC Glucose 85 Departure - Departure Disposition: Home, Routine, Self-Care Clinical Impression: Abdominal pain Qualifiers: Abdominal location: epigastric Qualified Code(s): R10.13 - Epigastric pain Condition: Good Instructions: Abdominal Pain (ED) Additional Instructions: Please follow-up within the week with Gastroenterology or your primary care doctor, return if you get worsening symptoms. Try Protonix daily for at least the next 7-10 days. Referrals: Prosper Sanchez MD [Primary Care Provider] - As per Instructions Smith Brown MD, FACG [Medical Doctor] - As per Instructions
[2017-06-11] MEDS ORDERED: IOPAMIDOL (ISOVUE-300) 100 ML BTL ONE ×2 (19:50)
[2017-06-11] MEDS ORDERED: HYDROmorphONE/DILAUDID 1 MG/ML INJ ONE ×2 (19:51)
[2017-06-11] MEDS ORDERED: HYDROmorphONE/DILAUDID 1 MG/ML INJ IVP ONE ×2 (19:52)
[2017-06-11 19:55] LABS: PLATELET COUNT 214 10^3/uL (150-400)
--- NOTE | 2017-06-11 21:11 | CPEKG ---
Heart Rate: 79 RR Interval: 759 P-R Interval: 184 QRSD Interval: 98 QT Interval: 412 QTC Interval: 473 P [place]: 71 QRS [place]: 34 T Wave [place]: 25 EKG Severity - OTHERWISE NORMAL ECG - EKG Impression: SINUS RHYTHM EKG Impression: LOW VOLTAGE IN FRONTAL LEADS Electronically Signed By: Jose Juan Young 11-Jun-2017 21:12:15
--- NOTE | 2017-06-11 21:11 | CPEKG ---
Heart Rate: 79 RR Interval: 759 P-R Interval: 184 QRSD Interval: 98 QT Interval: 412 QTC Interval: 473 P [place]: 71 QRS [place]: 34 T Wave [place]: 25 EKG Severity - OTHERWISE NORMAL ECG - EKG Impression: SINUS RHYTHM EKG Impression: LOW VOLTAGE IN FRONTAL LEADS Electronically Signed By: Jose Juan Young 11-Jun-2017 21:12:15
[2017-06-11 21:21] VITALS: PULSE 81; TEMP 97.9
[2017-06-11 21:43] VITALS: BP 148/72; RESP 16; O2SAT 94
== END 2017-06-11 21:43 | disposition home or self-care (01) ==
DX: R10.13 Epigastric pain (principal); E86.9 Volume depletion, unspecified; Z87.891 Personal history of nicotine dependence; Z90.49 Acquired absence of other specified parts of digestive tract
CPT/HCPCS: 82947-QW; 96374; J1170; Q9967

== ENCOUNTER → 2017-08-05 | Outpatient (CLI) | payer OTHER | LOC: FIMAGING 12:38 → EDSTATUS 12:39 | PROVIDERS: ATTEND Nurse Practitioner | DX: Z09 Encounter for follow-up examination after completed treatment for conditions other than malignant neoplasm (principal); Z98.1 Arthrodesis status ==

== ENCOUNTER → 2017-11-16 | Outpatient (CLI) | payer OTHER | LOC: FIMAGING 10:02 | PROVIDERS: ATTEND Nurse Practitioner | DX: Z98.1 Arthrodesis status (principal); M41.9 Scoliosis, unspecified; M51.36 Other intervertebral disc degeneration, lumbar region; M51.34 Other intervertebral disc degeneration, thoracic region ==

== ENCOUNTER → 2017-12-09 | Outpatient (CLI) | payer OTHER | LOC: FIMAGING 08:10 | PROVIDERS: ATTEND Nurse Practitioner | DX: Z98.1 Arthrodesis status (principal); M51.36 Other intervertebral disc degeneration, lumbar region; M53.87 Other specified dorsopathies, lumbosacral region; M48.07 Spinal stenosis, lumbosacral region; M43.17 Spondylolisthesis, lumbosacral region ==

== ENCOUNTER → 2017-12-18 | Outpatient (CLI) | payer OTHER | LOC: FIMAGING 19:19 | PROVIDERS: ATTEND Nurse Practitioner | DX: Z98.1 Arthrodesis status (principal); M48.04 Spinal stenosis, thoracic region; M51.34 Other intervertebral disc degeneration, thoracic region ==

== ENCOUNTER → 2018-01-05 | Outpatient (CLI) | payer OTHER | LOC: FIMAGING 09:06 | PROVIDERS: ATTEND Nurse Practitioner | DX: M51.36 Other intervertebral disc degeneration, lumbar region (principal); M51.34 Other intervertebral disc degeneration, thoracic region; M48.061 Spinal stenosis, lumbar region without neurogenic claudication; M48.04 Spinal stenosis, thoracic region; Z98.1 Arthrodesis status ==

== ENCOUNTER 2018-01-09 20:08 | Observation (INO) | payer OTHER ==
[2018-01-09 21:03] LABS: PLATELET COUNT 206 10^3/uL (150-400)
[2018-01-09 21:06] LABS: INR 1.08 (0.83-1.16); PROTIME(PATIENT) 14.2 SEC (12.0-15.0)
--- NOTE | 2018-01-09 21:08 | EDPHY ---
H & P Time Seen by Provider: 01/09/18 20:29 HPI/ROS: HPI Shortness of breath. 62-year-old male by private vehicle with his . [place] [address] He reports that he has felt shortness of breath since Thursday. He reports he had a home pulse oximeter kit arrive on Thursday night. He reports that this red 72% on room air. He reports he took some deep breaths and this came up. He reports feeling more short of breath today. No chest pain. He has not had a fever. Denies cough. Denies lower extremity pain or swelling. 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 He states that he thinks he may be having a reaction to wood sawdust when doing this and he has had some coughing and shortness of breath when doing this activity. ROS: Constitutional: No fever, no chills. No weakness. Eyes: No discharge. No changes in vision. ENT: No sore throat. No nasal congestion or rhinorrhea. Respiratory: No cough. As above. Cardiac: No chest pain, no palpitations. Gastrointestinal: No abdominal pain, no vomiting, no diarrhea. Genitourinary: No hematuria. No dysuria or increased frequency with urination. Musculoskeletal: No back pain. No neck pain. No myalgias or arthralgias. Skin: No rashes. Neurological: No headache. No focal weakness or altered sensation. Past medical history: Hypertension, pseudogout, hepatitis-C, migraine headaches , appendectomy, tonsillectomy, maxillary surgery, cataract surgery, knee surgery. Social history: Nonsmoker. No marijuana. No alcohol. Here with his . Lives [place] [address] outside of [place]. 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 Physical Exam: General Appearance: Alert, no distress. This patient is responding to questions appropriately and in full sentences. This patient appears well- hydrated and well-nourished. Eyes: Pupils equal and round no pallor or injection. No lid edema, erythema or injection. Respiratory: There are no retractions, lungs are clear to auscultation with good air movement bilaterally. No tachypnea. Cardiovascular: Regular rate and rhythm. No murmur. Gastrointestinal: Abdomen is soft and nontender, no masses, bowel sounds normal. No focal tenderness at McBurney's point. No Beckett sign. Neurological: Motor sensory function is grossly intact. Cranial nerves are normal. Gait is normal. Skin: Warm and dry, no rashes. Musculoskeletal: Neck is supple and nontender. Extremities are symmetrical. All joints range without pain or impingement. Psychiatric: No agitation. No depression. Database: EKG: EKG time is 9:09 p.m.; EKG shows a narrow complex normal sinus rhythm with a ventricular rate of 83. The NH, QRS, QT intervals are within normal limits. There are no ST-T wave changes indicative of ischemic or injury pattern. No evidence of right heart strain. Interpreted by me. Imaging: Chest x-ray AP portable; the cardiac mediastinal silhouette is unremarkable. No evidence of infiltrate or pneumothorax. No acute cardiopulmonary disease process noted. Interpreted by me. CT angiogram of chest; no CT evidence of pulmonary embolism. Trace right-sided pleural effusion with likely associated atelectasis, cannot exclude small infiltrates, coronary artery disease. Stable right adrenal adenoma. No pericardial effusion. Results discussed with staff radiologist Dr. Laith Lopez. Procedures: Emergency department course: Triage vital signs reviewed. Room air pulse oximetry 85%. Patient moderately hypertensive. Vital signs otherwise normal. Placed on 2 L of oxygen by nasal cannula, pulse oximetry comes up to 92-94%. EKG obtained and reviewed by myself. Blood work reviewed. Polycythemia likely secondary to living at altitude. D- dimer elevated. Patient endorses CT to evaluate for pulmonary embolism. 10:30 p.m., we got the patient up and ambulated him around the emergency department. Room air pulse oximetry falls to 82%. I discussed admission with the patient to our hospitalist service for further evaluation. He endorses. 10:45 p.m., spoke with on-call hospitalist, Dr. Sukhi Grey. Case discussed in detail with him. He accepts this patient for admission. Hypoxia unlikely secondary to pneumonia. Antibiotic administration will be deferred to hospitalist service. The patient's remaining emergency department course under my care has been uneventful. He was admitted in stable condition to the hospitalist service. Differential Diagnosis: The differential diagnosis on this patient includes but is not limited to reactive airway disease, congestive heart failure, pulmonary embolism, acute coronary syndrome. This represents a partial list of diagnoses considered. These considerations are based on history, physical exam, past history, reassessment and diagnostic testing. Smoking Status: Former smoker Constitutional: Initial Vital Signs Temperature (C) 36.8 C 01/09/18 20:15 Heart Rate 93 01/09/18 20:15 Respiratory Rate 20 01/09/18 20:15 Blood Pressure 163/104 H 01/09/18 20:15 O2 Sat (%) 85 L 01/09/18 20:15 O2 Delivery Mode Room Air O2 (L/minute) 2 Allergies/Adverse Reactions: No Known Allergies Allergy (Verified 01/09/18 20:15) Home Medications: Medication Instructions Recorded Losartan Potassium [Cozaar] 100 mg PO HS 12/28/13 Pantoprazole Sodium [Protonix 40mg 20 mg PO HS PRN 02/13/16 (*)] amLODIPine BESYLATE [Norvasc 10 mg 10 mg PO HS 02/13/16 (*)] GABAPENTIN 400 mg PO 06/11/17 Naproxen 250 mg PO 06/11/17 Tamsulosin HCl [Flomax 0.4 MG (*)] 0.4 mg PO 06/11/17 Medical Decision Making - Diagnostics Imaging Results: Imaging Impressions Chest X-Ray 01/09/18 20:56 Impression: Mild perihilar bronchial wall thickening with bibasilar subsegmental atelectasis versus minimal infiltrate(s). At Dr. Holland's request, a CTPA will be subsequently performed and separately reported. Chest/Thorax CTA 01/09/18 21:16 Impression: 1. There is no CT evidence of pulmonary artery thromboemboli. 2. Coronary artery atherosclerotic calcifications. 3. Trace right pleural effusion with bibasilar subsegmental atelectasis ( minimal infiltrates not excluded). 4. Stable-appearing 2 cm right adrenal gland adenoma, compared to 06/11/17. Findings were discussed with Dalton Holland MD at 22:01, on 01/09/2018. - Data Points Laboratory Results: Laboratory Results 01/09/18 20:25 01/09/18 20:25 01/09/18 01/09/18 01/09/18 21:11 20:25 20:25 WBC RBC Hgb Hct MCV MCH MCHC RDW Plt Count MPV Neut % (Auto) Lymph % (Auto) [place] % (Auto) Eos % (Auto) Baso % (Auto) Nucleat RBC Rel Count Absolute Neuts (auto) Absolute Lymphs (auto) Absolute Monos (auto) Absolute Eos (auto) Absolute Basos (auto) Absolute Nucleated RBC Immature Gran % Immature Gran # PT 14.2 SEC SEC (12.0-15.0) INR 1.08 (0.83-1.16) APTT 27.2 SEC SEC (23.0-38.0) D-Dimer 0.56 ug/mLFEU H ug/mLFEU (0.00-0.50) Sodium 145 mEq/L mEq/L (135-145) Potassium 4.5 mEq/L mEq/L (3.3-5.0) Chloride 110 mEq/L mEq/L (97-110) Carbon Dioxide 21 mEq/l L mEq/l (22-31) Anion Gap 14 mEq/L mEq/L (8-16) BUN 22 mg/dL mg/dL (7-23) Creatinine 1.3 mg/dL mg/dL (0.7-1.3) Estimated GFR 56 Glucose 76 mg/dL mg/dL (70-100) Calcium 9.4 mg/dL mg/dL (8.5-10.4) POC Troponin I 0.01 ng/mL ng/mL (0.00-0.08) NT-Pro-B Natriuret Pep 46 pg/mL pg/mL (0-125) 01/09/18 20:25 WBC 16.69 10^3/uL H 10^3/uL (3.80-9.50) RBC 6.50 10^6/uL H 10^6/uL (4.40-6.38) Hgb 16.9 g/dL g/dL (13.7-17.5) Hct 52.2 % H % (40.0-51.0) MCV 80.3 fL L fL (81.5-99.8) MCH 26.0 pg L pg (27.9-34.1) MCHC 32.4 g/dL g/dL (32.4-36.7) RDW 16.5 % H % (11.5-15.2) Plt Count 206 10^3/uL 10^3/uL (150-400) MPV 10.2 fL fL (8.7-11.7) Neut % (Auto) 77.9 % H % (39.3-74.2) Lymph % (Auto) 9.8 % L % (15.0-45.0) [place] % (Auto) 7.4 % % (4.5-13.0) Eos % (Auto) 3.9 % % (0.6-7.6) Baso % (Auto) 0.5 % % (0.3-1.7) Nucleat RBC Rel Count 0.0 % % (0.0-0.2) Absolute Neuts (auto) 13.00 10^3/uL H 10^3/uL (1.70-6.50) Absolute Lymphs (auto) 1.63 10^3/uL 10^3/uL (1.00-3.00) Absolute Monos (auto) 1.24 10^3/uL H 10^3/uL (0.30-0.80) Absolute Eos (auto) 0.65 10^3/uL H 10^3/uL (0.03-0.40) Absolute Basos (auto) 0.08 10^3/uL 10^3/uL (0.02-0.10) Absolute Nucleated RBC 0.00 10^3/uL 10^3/uL (0-0.01) Immature Gran % 0.5 % % (0.0-1.1) Immature Gran # 0.09 10^3/uL 10^3/uL (0.00-0.10) PT INR APTT D-Dimer Sodium Potassium Chloride Carbon Dioxide Anion Gap BUN Creatinine Estimated GFR Glucose Calcium POC Troponin I NT-Pro-B Natriuret Pep Point of Care Test Results: Chemistry 01/09/18 21:11 POC Troponin I 0.01 ng/mL ng/mL (0.00-0.08) Departure - Departure Disposition: [facility] Inpatient Acute Clinical Impression: Hypoxia, Dyspnea
--- NOTE | 2018-01-09 21:11 | CPEKG ---
Heart Rate: 83 RR Interval: 723 P-R Interval: 188 QRSD Interval: 90 QT Interval: 364 QTC Interval: 428 P [place]: 53 QRS [place]: 3 T Wave [place]: 22 EKG Severity - NORMAL ECG - EKG Impression: SINUS RHYTHM Electronically Signed By: Dalton Holland 09-Jan-2018 23:08:11
[2018-01-09] MEDS ORDERED: IOPAMIDOL (ISOVUE 370) 100 ML BTL IV ONE (21:19)
[2018-01-10] MEDS ORDERED: GABAPENTIN 100 MG CAP PO PRN (00:04)
[2018-01-10] MEDS ORDERED: ONDANSETRON 4 MG/2 ML VIAL IVP PRN (00:04)
[2018-01-10] MEDS ORDERED: ONDANSETRON DISINTEGRATING 4 MG TAB PO PRN (00:04)
[2018-01-10] MEDS ORDERED: ACETAMINOPHEN 325 MG TAB PO PRN (00:04)
[2018-01-10] MEDS ORDERED: ALBUTEROL 3 ML DEYVIAL IH PRN (00:13)
[2018-01-10] MEDS ORDERED: PANTOPRAZOLE SODIUM 40 MG TAB PO SCH (00:15)
[2018-01-10] MEDS ORDERED: PANTOPRAZOLE SODIUM 40 MG TAB PO PRN ×2 (00:15)
[2018-01-10] MEDS ORDERED: TAMSULOSIN HCL 0.4 MG CAP PO SCH ×2 (00:15)
--- NOTE | 2018-01-10 00:18 | PDHOMEO2F ---
Home Oxygen Face to Face Home Orders: I certify that a physician or a nurse practitioner or physician's personalized living assistant has had a skeg-am-gxpt encounter with this patient on the date of this order due to the diagnosis listed, which relates to the primary reason the patient requires home oxygen. Alternative treatments have been tried, or considered, and deemed ineffective. It is anticipated that supplemental oxygen will result in improvement with treatment. Home oxygen qualifying diagnosis: copd SpO2 on room air (%): 86 Frequency of home oxygen needed: continuous Home oxygen liters per minute: 3 Home oxygen delivery device: nasal cannula Concentrator: Yes E-tanks for mobility and back up: Yes If ordering portable O2, is the patient mobile in the home?: Yes I certify that, based on these findings, the home oxygen is medically necessary for this patient for the following length of time. Length of time home oxygen needed: 99 years
[2018-01-10] MEDS: IBUPROFEN 800 MG TAB PO PRN ×2 (00:26→08:36)
[2018-01-10] MEDS: DOXYCYCLINE HYCLATE 100 MG CAP/TAB PO SCH ×2 (00:26→08:34)
[2018-01-10] MEDS: predniSONE 20 MG TAB PO SCH ×2 (00:26→08:34)
--- NOTE | 2018-01-10 06:49 | GHP ---
[f rep st] HISTORY AND PHYSICAL DATE OF ADMISSION: 01/09/2018 This patient is a pleasant 62-year-old gentleman who presents with shortness of breath and hypoxia. 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 He has been being evaluated for sleep apnea and has had some ongoing shortness of breath. He had a nocturna l pulse ox study from his primary care physician which when he put on last night he was noted to be 7 2% on room air. This is at [address] at [facility] near [place]. He has had a cough produ ctive of occasional green sputum without fever, chills. He had about 10 to 15 pack-year smoking hist ory but quit remotely. He has not been noted to be wheezing. He has occasional lower extremity enrico a which he attributes to gabapentin as apparently this is a side effect of it. He does not have a ca rdiac history. He has not had chest pain. He does not have pulmonary embolism risk factors. 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 He ultimately sought care tonight given ongoing shortness of breath. Notably, he has some spinal disease and has a plan to complete a fusion at the end of the month, so jerry engle has been less active and has gained some weight but does not really exercise on a regular basis. REVIEW OF SYSTEMS: Complete 10-point review of systems conducted, negative except as noted in the HP I. PAST MEDICAL HISTORY: 1. Hypertension. 2. Degenerative disease of the spine. 3. Reflux. 4. BPH. ALLERGIES: No known drug allergies. HOME MEDICATIONS: Naproxen, amlodipine, gabapentin, ibuprofen, losartan, pantoprazole, tamsulosin. SOCIAL HISTORY: No tobacco. No alcohol. No drugs. 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 FAMILY HISTORY: Reviewed and unremarkable. PHYSICAL EXAMINATION: VITAL SIGNS: Temp 37, blood pressure 117/87, pulse 86, breathing 20 times a m inute, 86% on room air, 93 on 4 L. GENERAL: No acute distress. HEENT: Sclerae anicteric. Orophar ynx clear. Mucous membranes moist. NECK: Supple without lymphadenopathy or JVD. LUNGS: Clear to auscultation bilaterally. HEART: S1, S2. ABDOMEN: Soft, nontender, nondistended. LOWER EXTREMITI ES: Without edema. Calves are nontender. SKIN: Without rash. NEUROLOGIC: Exam is grossly nonfoc al. LABS: White count 16.7, hematocrit is 52 with MCV of 80, platelets are 206,000. D-dimer is elevated at 0.56. Coag's are normal. Sodium 145, potassium 4.5, chloride 110, bicarb 21, BUN 22, creatinine 1.3, glucose is 76. BNP is 46. Troponin is 0.01. CTA of the chest: Images reviewed and interpret ed by me. Shows no pulmonary embolism. No significant parenchymal lung disease. He does have coron gadiel artery atherosclerotic calcifications, trace right pleural effusion, subsequent segmental atelect asis, stable 2 cm right adrenal gland adenoma. Chest x-ray interpreted by me shows no acute cardiopu lmonary disease. EKG interpreted by me shows sinus at 83 with normal axis and intervals and no ST or T-wave changes. I have discussed the case with . ASSESSMENT AND PLAN: This is a 62-year-old gentleman with new hypoxemia. Hypoxemia. I suspect this is chronic given his mild polycythemia and relatively low number of sympto ms he had with this. It is notable the patient was somewhat asymptomatic but noted to be 70% on room air. In retrospect, he notes he might have been having a bit of increased work of breathing. Regarding differential, I do not think this represents heart failure. I do not think it represents p neumonia. PE has been ruled out. CT showed no significant parenchymal abnormalities, although this is not a high-resolution CT. There is a possible environmental exposure. He does note that he is co ughing up some greenish sputum. Regarding evaluation, I think we will go ahead and perform ABG and bedside pulmonary function tests. Echocardiogram has been ordered. I think a trial of steroids for a 5-day course of 40 of prednisone , as well as doxycycline for possible bronchitis. Will also give a trial of albuterol. I have ordered a Pulmonary consult for the morning. He will need home oxygen, and I have ordered bay t. Smoking. The patient has a remote history of smoking. This does not seem particularly like emphysem a, but certainly that is in the differential. PFTs will help sort this out. Hypertension. Continue his antihypertensives. Degenerative disease of the spine. The patient has surgery scheduled at the end of this month. I do not see this as a contraindication. DISPOSITION: Observation status. /[id number]/MODL
[2018-01-10 08:17] LABS: PLATELET COUNT 204 10^3/uL (150-400)
[2018-01-10] MEDS: oxyCODONE IR 5 MG TAB PO PRN ×2 (10:33→15:08)
--- NOTE | 2018-01-10 10:41 | ECHO ---
[email or web address] [address] [address] Main: [phone] Fax: Transthoracic Echocardiogram Name: ORION ALBRIGHT MR#: [id number] Study Date: 01/10/2018 Study Time: 08:39 AM Date of : 1955 Age: 62 year(s) Height: 175.3 cm (69 in.) Weight: 108.41 kg (239 lb.) BSA: 2.23 m2 Gender: Male Examination: Echo Indication: hypoxia Image Quality: Adequate Contrast: Requested by: Jesse Grey BP: 97 mmHg/65 mmHg Heart Rate: Rhythm: Indication: hypoxia Procedure Staff Associate [employer]: Richa Smith [facility] Reading Physician: Deepa Woo MD Requesting Provider: Conclusions: Normal size left ventricle. Borderline concentric LV hypertrophy. Normal global systolic LV function. EF is 66 %. No regional wall motion abnormality. Grade 1 diastolic dysfunction (abnormal relaxation). Mildly dilated right ventricle. Normal RV function. No significant valvular disease Measurements: Chambers Valvular Assessment AV/MV Valvular Assessment TV/PV Normal Normal Normal Name Value Range Name Value Range Name Value Range Ao Salima (MM): 3.2 cm (2.2 cm-3.7 AV Vmax: 1.23 m/s (1 m/s-1.7 PV Vmax: 0.93 m/s (0.6 m/s-0.9 cm) m/s) m/s) IVSd (2D): 0.9 cm (0.6 cm-1.1 AV maxP mmHg ( - ) PV PGmax: 3 mmHg ( - ) cm) LVOT Vmax: 0.92 m/s (0.7 m/s-1.1 LVDd (2D): 4.7 cm (4.2 cm-5.9 m/s) cm) MV E Vmax: 0.69 m/s ( - ) LVDs (2D): 3.1 cm (2.1 cm-4 MV A Vmax: 0.92 m/s ( - ) cm) MV E/A: 0.75 ( - ) LVPWd (2D): 1.0 cm (0.6 cm-1 cm) LVEF (BP): 66 % (>=55 %) RVDd(2D): 3.3 cm (1.9 cm-3.8 cmmm) Continued Measurements: Chambers Valvular Assessment AV/MV Valvular Assessment TV/PV Patient: ORION ALBRIGHT Study Date: 01/10/2018 Page 1 of 2 08:39 AM Name Value Name Value Name Value LADs Lon.5 cm MV DecTime: 190 m/s CVP (est.): 10 mmHg LA Area: 15.9 cm2 MV E' Septal: 0.08 m/s LA Volume: 35 ml MV E/E' Septal: 8.90 LA Volume Index: 15.7 ml/m2 MV E/E' Lateral: 7.70 TAPSE: 2.2 cm RA Area: 12.0 cm2 Additional Vessels Name Value Ao Ascendin.3 cm Findings: Left Ventricle: Normal size left ventricle. Borderline concentric LV hypertrophy. Normal global systolic LV function. EF is 66 %. No regional wall motion abnormality. Grade 1 diastolic dysfunction (abnormal relaxation). Right Ventricle: Mildly dilated right ventricle. Normal RV function. Left Atrium: The left atrium is normal in size. Right Atrium: The right atrium is normal in size. Mitral Valve: The mitral valve is normal in appearance and function. There is no mitral valve regurgitation. No mitral stenosis is present. Aortic Valve: Aortic valve is not visualized. There is no aortic valve regurgitation. No aortic valve stenosis is present. Tricuspid Valve: The tricuspid valve is normal in appearance and function. There is no tricuspid valve regurgitation. Pulmonary artery pressure is not obtained due to inadequate TR jet. Pulmonic Valve: The pulmonic valve is normal in appearance and function. Aorta: The aorta is normal. Normal size aortic root measuring 3.2 cm. Normal size ascending aorta measuring 3.3 cm. IVC: The IVC is mildly dilated. Pericardium: Possible trivial pericardial effusion noted around the RV free wall.. (No Signature Object) Patient: ORION ALBRIGHT Study Date: 01/10/2018 Page 2 of 2 08:39 AM [id number]
[2018-01-10 11:12] VITALS: BP 104/70
--- NOTE | 2018-01-10 11:48 | ASMTCMCOM ---
CM Note CM Note Notes: Chart reviewed for discharge planning purposes. 62 Year old male admitted with hypoxemia. New diagnosis for patient, undergoing diagnostics. Will need home oxygen at discharge. No other needs identified at this time. CM available should other needs arise, Plan: Home with oxygen Date Signed: 01/10/2018 11:48 AM Electronically Signed By:Anisha Ritchie RN
--- NOTE | 2018-01-10 16:21 | ASMTLACE ---
LACE Length of stay for Answers: Less than 1 day current admission Comorbidities - select Answers: Other Notes: DJD all that apply # of Emergency department Answers: 1-2 visits in the last 6 months Score: 2 Date Signed: 01/10/2018 04:21 PM Electronically Signed By:Grace Fang LCSW
--- NOTE | 2018-01-10 16:21 | GCON ---
[f rep st] CONSULTATION PULMONARY CONSULTATION DATE OF CONSULTATION: 01/10/2018 REASON FOR CONSULTATION: Hypoxemia. 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 He has no history of lung disease. He smoked minimally in the past. [place] [address] [place] Two days ago, day prior to admi ssion, he was feeling poorly. He has had somewhat of a chronic cough; however this accelerated and h e had increased cough, occasionally productive of some colored sputum, possibly some wheezing, and in creasing dyspnea on exertion. He previously had a overnight oximetry study ordered and this was done the night before his admission. When he put the pulse oximeter on, his saturations were 72%. He co ntinued to feel poorly yesterday and his brought him to the emergency department last night. He was found to be hypoxemic and subsequently admitted. CT angiogram of the chest was unremarkable f or pulmonary embolic disease, infiltrates, or significant atelectasis. There was a trace right-sided pleural effusion with minimal dependent atelectasis at the base. Room air saturation on admission t o the ED was 85%. He was placed on 2 L of oxygen and admitted to the hospitalist service. He was st arted on doxycycline and prednisone. Albuterol was given by nebulizer. He does have a history of possible occupational exposure. 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 Occasionally, he has noted episodes of increased shor tness of breath associated with his work. He does wear mask, but he has a dorsey and his mask does no t totally protect him. He does have fairly good ventilation in his wood shop, but again, he is not t otally protected. He has no history of asthma. He did smoke cigarettes, but relatively minimally an d quit smoking a number of years ago. He is overweight. He does snore at night and according to his , he has witnessed apneas. PAST MEDICAL HISTORY: Remarkable for systemic hypertension and degenerative disk disease with lower lumbar fusion in the past. He is scheduled for a thoracolumbar 4-level surgery at the end of this mo nth. There is a history of gastroesophageal reflux disease and prostatic hypertrophy, HOME MEDICATIONS: Include amlodipine, losartan, pantoprazole, Flomax, and gabapentin. SOCIAL HISTORY: . Has not smoked in many years. No alcohol. No drugs. 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 FAMILY HISTORY: Negative/noncontributory. REVIEW OF SYSTEMS: Negative, except as mentioned above. There is no history of heart disease, lower extremity edema, renal disease, or other significant problems. PHYSICAL EXAMINATION: GENERAL: Reveals a very pleasant gentleman who is sitting comfortably in bed. He is in no distress. VITAL SIGNS: On 3 L of oxygen, saturations are 94%. On room air, he bounce s around between 87% and 91%. Blood pressure is approximately 100/70, heart rate 75 and regular. Re spiratory rate is 16. He is afebrile. HEENT/NECK: Unremarkable for lymphadenopathy or thyromegaly. Oropharyngeal, soft tissues/tongue are moderately increased, but I cannot see his posterior orophar ynx and uvula. Neck is large. There is no significant nasal congestion. CHEST: Somewhat decreased breath sounds, secondary to body habitus. There are few bibasilar nonspecific rales at inspiration. There is no wheezing. No congestion. HEART: Regular in rate and rhythm without murmur or gallop. ABDOMEN: Overweight, soft, nontender. Bowel sounds are present. EXTREMITIES: There is no lower extremity edema. NEUROLOGIC: Examination is within normal limits. LABORATORY/IMAGING: CT angiogram of the chest was negative, except as outlined above. Cardiac echo was normal with normal left ventricular and right ventricular function. There was no ev idence of pulmonary hypertension. White blood cell count on admission was 16,000, down to 11,000 today. Hematocrit is 54. Platelets a re normal. PT and PTT were normal on admission. Arterial blood gas on 5 L showed a pH of 7.37, pCO2 of 32, and pO2 of 88 with 96% saturation. Basic metabolic panel was within normal limits with a neg ative troponin, normal BNP. ASSESSMENT: 1. Hypoxemia. This is multifactorial. His increased symptoms over the last 3 days argue for a comp onent of acute bronchitis with pulmonary congestion. This appears to be somewhat better with broncho dilator therapy, antibiotics, and steroids. He is borderline hypoxemic at this time and is being sen t home on oxygen. Obesity/body habitus is likely contributing as well. 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 This can cause bronchospastic disease , as well as a hypersensitivity pneumonitis; however, CT scan is unrevealing and does not show eviden ce of interstitial lung disease or clinical hypersensitivity at this time. Pulmonary function studie s will be needed. 2. Polycythemia. This is most likely related to hypoxemia at night and possibly sleep apnea. Recen t overnight oximetry was performed; however, he was starting to get sick at this time and I anticipat e that low saturations are probably not guest service representative of his usual saturations at night; however, I suspect that he has likely needed oxygen at night for some time. A more formal sleep study will be n eeded to document the severity of obstructive sleep apnea. 3. History of other medical problems as outlined above. PLAN/RECOMMENDATIONS: I think it would be acceptable to discharge him today on home oxygen, doxycycl ine to complete a 7 day course, albuterol by metered-dose inhaler use 2 puffs 3-4 times per day, and prednisone at 40 mg with a taper by 10 mg every 3 days or so. I will see him back in the office in t he next week or two with complete pulmonary function studies. A sleep study can be set up at that ti me. Overnight oximetry can be reviewed then. He is use oxygen at night. If saturations are in the upper 80s or above during the day, he does not necessarily need to wear oxygen. Further plans and recommendations will be made after further outpatient followup. All of the above was discussed with the patient and his . /[id number]/MODL
--- NOTE | 2018-01-10 16:24 | ASDISCHSUM ---
Discharge Information Plan Status:Home with DME or Oxygen Medically Cleared to Leave:01/10/2018 Discharge Date:01/10/2018 CM D/C Disposition:Home, Routine, Self-Care ADT D/C Disposition:Home, Routine, Self-Care Projected Discharge Date:01/10/2018 05:00 PM Transportation at D/C:Family Discharge Delay Reason: Follow-Up Date:01/10/2018 05:00 PM Discharge Slot: Final Diagnosis:SOB, Hypoxia Placement Information Patient Contact Information Contact Name:ISABELLE Relationship:Friend Address: Work Phone: City: [facility] Phone: State/Zip Code: Email: Financial Information Financial Class:[place] Self Representation Document Preparation Primary Plan Desc:[facility] Primary Plan Number:[id number] Secondary Plan Desc: Secondary Plan Number: Assessment Information LACE LACE Length of stay for Answers: Less than 1 day current admission Comorbidities - select Answers: Other Notes: DJD all that apply # of Emergency department Answers: 1-2 visits in the last 6 months Score: 2 Date Signed: 01/10/2018 04:21 PM Electronically Signed By:Grace Fang LCSW [facility] CM Progress Note CM Note CM Note Notes: Chart reviewed for discharge planning purposes. 62 Year old male admitted with hypoxemia. New diagnosis for patient, undergoing diagnostics. Will need home oxygen at discharge. No other needs identified at this time. CM available should other needs arise, Plan: Home with oxygen Date Signed: 01/10/2018 11:48 AM Electronically Signed By:Anisha Ritchie RN Case Management Discharge Plan Note Case Management Discharge Discharge Order Complete? Answers: Yes Transportation Arranged Answers: Family/Friends Transport will Pick (Date 01/10/2018 04:30 PM & Time) Family Notified Answers: Yes Notes: to transport Discharge Comments Notes: Patient has been discharged home. Will have O2 arranged by RT. No other needs at this time. Patient not interested in HC. Date Signed: 01/10/2018 04:23 PM Electronically Signed By:Grace Fang LCSW Intervention Information
[2018-01-10] MEDS ORDERED: LOSARTAN POTASSIUM 50 MG TAB PO SCH (21:00)
--- NOTE | 2018-01-11 09:41 | GDS ---
[f rep st] DISCHARGE SUMMARY DISCHARGE DIAGNOSES: 1. Hypoxemia. 2. Polycythemia. CONSULTATIONS: Dr. Hanson of pulmonology. STUDIES AND PROCEDURES: 1. CT angio of the chest. 2. Echocardiogram. PHYSICAL EXAM: GENERAL: The patient is alert. VITAL SIGNS: Afebrile at 35.9. Pulse is 74. Respi ratory rate is 20. Blood pressure is 104/70. He is saturating 93% on 5 L, 85% on room air. I have seen and evaluated the patient on the day of discharge. HOSPITAL COURSE: The patient is a 62-year-old male who presented to the emergency room after experie ncing significant shortness of breath. He was evaluated and diagnosed with: 1. Hypoxia. This is multifactorial and complicated. He did receive a consultation from Pulmonology during this hospitalization. CT angio of the chest was performed, as well as echocardiogram. It is likely that he suffers from a component of acute bronchitis with pulmonary congestion. He has been treated with oral antibiotic therapy, as well as prednisone taper. He will continue these in the out patient setting. He will follow up with Dr. Hernandez in the outpatient setting with a sleep study and f emilyther evaluation. 2. Polycythemia. This is likely in the setting of chronic hypoxemia and living at elevated altitude . He will have a sleep study performed in the outpatient setting. 3. Leukocytosis. This is likely secondary to an acute infectious process. DISPOSITION: The patient will be discharged home with supplemental oxygen. This has been arranged f or him prior to disposition. DISCHARGE MEDICATIONS: Please refer to EMR form. I have provided the patient prescriptions for doxy cycline, prednisone, and albuterol. I reviewed the patient's disposition with Dr. Hernandez Hernandez. FOLLOWUP: He will follow up with his primary care physician, as well as Dr. Hernandez. /[id number]/MODL
== END 2018-01-10 16:33 | disposition home or self-care (01) ==
LOC: INTOOBSV 22:41 → OBSVTOIN 22:41 → F3E 23:28
PROVIDERS: ADMIT Radiology Diagnostic Radiology; ATTEND Hospitalist
DX: R09.02 Hypoxemia (principal); R06.00 Dyspnea, unspecified; D75.1 Secondary polycythemia; D72.829 Elevated white blood cell count, unspecified; I10 Essential (primary) hypertension; B19.20 Unspecified viral hepatitis C without hepatic coma; G43.909 Migraine, unspecified, not intractable, without status migrainosus; N40.0 Benign prostatic hyperplasia without lower urinary tract symptoms; K21.9 Gastro-esophageal reflux disease without esophagitis; E66.3 Overweight; Z68.35 Body mass index [BMI] 35.0-35.9, adult; Z87.891 Personal history of nicotine dependence; Z57.9 Occupational exposure to unspecified risk factor
CPT/HCPCS: 71045; 71275; 93005; 93306; G0378; 84484-PO; J7512; J7613; Q9967

== ENCOUNTER 2018-02-04 08:43 | Inpatient (IN) | payer OTHER ==
[2018-02-04] MEDS ORDERED: morphINE PF 0.2 MG in SYRINGE INTRATHECAL 1 SYR IT ONE (08:48)
[2018-02-04] MEDS ORDERED: morphINE SR 15 MG TAB PO ONE (08:48)
[2018-02-04] MEDS ORDERED: GABAPENTIN 300 MG CAP PO ONE (08:48)
[2018-02-04] MEDS ORDERED: ceFAZolin 2 GM/DEXTROSE 100 ML IV ONE (08:48)
[2018-02-04] MEDS ORDERED: ACETAMINOPHEN 500 MG TAB PO ONE (08:48)
[2018-02-04] MEDS ORDERED: LR 1,000 ML IV ONE (08:49)
--- NOTE | 2018-02-04 09:40 | PDHPUP ---
History & Physical Update H&P update statement: This history and physical update is based on an assessment of the patient which was completed after admission or registration (within 24 hours), but prior to the surgery/procedure. H&P update: H&P reviewed & patient examined, no change in patient's condition since H&P completed (Consents signed and site marked. All questions answered.)
[2018-02-04] MEDS ORDERED: MIDAZOLAM 2 MG/2 ML VIAL IVP ONE (09:50)
[2018-02-04] MEDS ORDERED: THROMBIN (BOVINE) 20,000 UNIT VIAL TP ONE (09:53)
[2018-02-04] MEDS ORDERED: CHLORHEXIDINE GLUC HIBICLENS 118 ML BTL TP ONE (09:53)
--- NOTE | 2018-02-04 09:53 | PDANEPAE ---
ANE History of Present Illness spinal stenosis ANE Past Medical History - Cardiovascular History Hx Hypertension: Yes Hx Arrhythmias: No Hx Chest Pain: No Hx Coronary Artery / Peripheral Vascular Disease: No Hx CHF / Valvular Disease: No Hx Palpitations: No Cardiovascular History Comment: PVD - Pulmonary History Hx COPD: No Hx Asthma/Reactive Airway Disease: No Hx Recent Upper Respiratory Infection: No Hx Oxygen in Use at Home: No O2 in Use at Home (L/minute): 2.L Hx Sleep Apnea: No Sleep Apnea Screening Result - Last Documented: Positive Pulmonary History Comment: JOSEPH TRIGGERS - Neurologic History Hx Cerebrovascular Accident: No Hx Seizures: No Hx Dementia: No Neurologic History Comment: MIGRAINES -recent episode of diplopia (5 Min)then H/ A started w/nausea - Endocrine History Hx Diabetes: No - Renal History Hx Renal Disorders: Yes Renal History Comment: EARLY BPH nocturia x1 - Liver History Hx Hepatic Disorders: Yes Hepatic History Comment: CHRONIC HEP C +. Treated in 2015 w/Sovaldi.Blood test recently should indicate a cure. - Neurological & Psychiatric Hx Hx Neurological and Psychiatric Disorders: No Neurological / Psychiatric History Comment: spinal stenosis DDD.low back pain - R side sciatica. Caudal injection recently. - Cancer History Hx Cancer: No - Congenital Disorder History Hx Congenital Disorders: No - GI History Hx Gastrointestinal Disorders: No - Other Health History Other Health History: SPINAL STENOSIS. DDD LUMBAR - Chronic Pain History Chronic Pain: Yes (low back pain) - Surgical History Prior Surgeries: bilat cataract extractions w/IOL implant 2015, Bilat totl knees 8-16,6-14,APPY. SINUS SURGERY X2. WISDOM TEETH REMOVAL. RIGHT KNEE SCOPE 2008 ANE Review of Systems Review of Systems: - Exercise capacity METS (RN): 3 METS ANE Patient History - Allergies Allergies/Adverse Reactions: No Known Allergies Allergy (Verified 01/26/18 12:19) - Home Medications Home Medications: Pantoprazole Sodium [Protonix 40mg (*)] 20 mg PO HS PRN 02/13/16 [Last Taken ] amLODIPine BESYLATE [Norvasc 10 mg (*)] 10 mg PO HS 02/13/16 [Last Taken ] GABAPENTIN 400 mg PO DAILY PRN 06/11/17 [Last Taken 02/03/18] Naproxen 500 mg PO BID PRN 06/11/17 [Last Taken 1 Week Ago ~01/28/18] Tamsulosin HCl [Flomax 0.4 MG (*)] 0.4 mg PO HS 06/11/17 [Last Taken 02/03/18] Ibuprofen 800 mg PO BID PRN 01/09/18 [Last Taken 1 Week Ago ~01/28/18] Albuterol [Proventil Inhaler HFA (*)] 1 - 2 puffs IH Q4H PRN 01/25/18 [Last Taken 1 Week Ago ~01/28/18] Colchicine [Colchicine (*)] 0.6 mg PO BID 01/25/18 [Last Taken 01/28/18] Losartan Potassium 100 mg PO DAILY 01/25/18 [Last Taken 02/02/18] Sildenafil Citrate 100 mg PO DAILY PRN 01/26/18 [Last Taken 02/02/18] - NPO status NPO Since - Liquids (Date): 02/03/18 NPO Since - Liquids (Time): 22:00 NPO Since - Solids (Date): 02/03/18 NPO Since - Solids (Time): 20:30 - Smoking Hx Smoking Status: Former smoker - Family Anes Hx Family Hx Anesthesia Complications: NONE ANE Labs/Vital Signs - Vital Signs Blood Pressure: 117/78 Heart Rate: 93 Respiratory Rate: 14 O2 Sat (%): 90 Height: 175.26 cm Weight: 108.862 kg ANE Physical Exam - Airway Neck exam: FROM Mallampati Score: Class 1 Mouth exam: normal dental/mouth exam - Pulmonary Pulmonary: no respiratory distress - Cardiovascular Cardiovascular: regular rate and rhythym - ASA Status ASA Status: III ANE Anesthesia Plan Anesthesia Plan: general endotracheal anesthesia Lines/Monitors: arterial line
[2018-02-04] MEDS ORDERED: BACITRACIN 50,000 UNITS/10 ML SYR IRR ONE (09:54)
[2018-02-04] MEDS ORDERED: EPINEPHrine 1 MG/ML INJ ONE (09:54)
[2018-02-04] MEDS ORDERED: BUPIVACAINE 0.25% 30 ML SDV ONE (09:54)
[2018-02-04] MEDS ORDERED: CITRATE DEXTROSE SOLN 500 ML BAG ONE ×2 (09:54→11:45)
[2018-02-04] MEDS ORDERED: HYDROmorphONE/DILAUDID 2 MG/ML INJ ONE (10:00)
[2018-02-04] MEDS ORDERED: fentaNYL 100 MCG/2 ML INJ ONE ×2 (10:00→10:01)
[2018-02-04] MEDS ORDERED: PROPOFOL/EMULSION 500 MG/50 ML BOTTLE IV ONE ×2 (10:01→14:04)
[2018-02-04] MEDS ORDERED: PHENYLEPHRINE HCL 100 MCG/ML SYR ONE (10:01)
[2018-02-04] MEDS ORDERED: PROPOFOL 200 MG/20 ML VIAL ONE (10:01)
[2018-02-04] MEDS ORDERED: KETAMINE 500 MG/10 ML VIAL ONE (10:01)
[2018-02-04] MEDS ORDERED: DEXAMETHASONE 4 MG/ML VIAL ONE (10:02)
[2018-02-04] MEDS ORDERED: LIDOCAINE 2% 5 ML SDV ONE (10:02)
[2018-02-04] MEDS ORDERED: ONDANSETRON 4 MG/2 ML VIAL ONE (10:02)
[2018-02-04] MEDS ORDERED: ROCURONIUM 50 MG/5 ML VIAL ONE (10:02)
[2018-02-04] MEDS ORDERED: ALBUTEROL 60 PUFFS/8 GM MDI IH PRN (13:13)
[2018-02-04] MEDS ORDERED: MAGNESIUM HYDROXIDE 30 ML UDCUP PO PRN (13:14)
[2018-02-04] MEDS ORDERED: BISACODYL 10 MG SUPP PR PRN (13:14)
[2018-02-04] MEDS ORDERED: ONDANSETRON DISINTEGRATING 4 MG TAB PO PRN (13:14)
[2018-02-04] MEDS ORDERED: ONDANSETRON 4 MG/2 ML VIAL IVP PRN ×2 (13:14→15:43)
[2018-02-04] MEDS ORDERED: diphenhydrAMINE 25 MG CAP PO PRN (13:14)
[2018-02-04] MEDS ORDERED: LACTULOSE 20 GM/30 ML UDCUP PO PRN (13:14)
[2018-02-04] MEDS ORDERED: PROMETHAZINE HCL 25 MG/ML INJ IVP PRN (15:43)
[2018-02-04] MEDS ORDERED: HYDROmorphONE/DILAUDID 1 MG/ML INJ IVP PRN (15:43)
[2018-02-04] MEDS ORDERED: NALOXONE HCL 0.4 MG/ML INJ IVP PRN (15:43)
[2018-02-04] MEDS ORDERED: fentaNYL 100 MCG/2 ML INJ IVP PRN (15:43)
[2018-02-04] MEDS ORDERED: GABAPENTIN 400 MG CAP PO PRN (15:45)
--- NOTE | 2018-02-04 16:35 | PDMN ---
Medical Necessity Medical necessity: IP only surgery; cpt 57291 S-820 Lumbar Fusion
--- NOTE | 2018-02-04 17:02 | POSTOPPROG ---
Post Op Note Date of Operation: 02/04/18 Surgeon: Kiesha Oneill Maintenance Craftsman: DELFIN Oneill PAC Anesthesia: GET(General Endotracheal) Pre-op Diagnosis: spinal stenosis Post-op Diagnosis: Spinal stenosis, pseudoarthoresis Indication: Spinal stenosis, pseudoarthoresis Procedure: T11/12 laminectomy, L1-S1 PSF, L1-3 TLIF with redo arthodesis L5/S1 Inf/Abcess present in the surg proc area at time of surgery?: No EBL: 50-100 Drains: Malcolm SCHERER Addendum - Addendum .: S: Resting comfortably O: NAD A&Ox3 MAEx4 5/5 and equal in BLE A/P 62y/o male s/p T11/12 laminectomy, L1-S1 PSF, L1-3 TLIF with redo arthrodesis L5/S1 -To ICU overnight -Optimize pain management -PT/OT -Post op xrays pending -Advance diet as tolerated -JACE drain x1 -DVT prophx: TEDs, SCDs, Lovenox okay POD2 -Please notify NS with any change in neuro/motor exam
--- NOTE | 2018-02-04 17:06 | POSTANESTH ---
Post Anesthetic Evaluation Cardiovascular Status: Normal, Stable Respiratory Status: Normal, Stable Level of Consciousness/Mental Status: Can Participate in Eval Pain Control: Adequate, Prn Tx Ordered Nausea/Vomiting Control: Adequate, Prn Tx Ordered Complications Possibly Related to Anesthesia: None Noted
[2018-02-04] MEDS: ceFAZolin 2 GM/DEXTROSE 100 ML IV SCH (18:22)
[2018-02-04] MEDS: NS 1,000 ML IV SCH (18:23)
--- NOTE | 2018-02-04 19:42 | GOP ---
[f rep st] OPERATIVE REPORT DATE OF OPERATION: 02/04/2018 SURGEON: Rohit Spain MD DRILL OPERATOR PNEUMATIC: Kiesha Oneill PA-C. PREOPERATIVE DIAGNOSIS: 1. T11-T12 severe spinal cord compression and progressive myelopathy. 2. Adjacent level breakdown at L1-L2 and L2-L3 with severe spinal stenosis and history of spinal fusion L3 through S1. 3. Low back pain. 4. Lower extremity claudication and weakness. 5. Treatment refractory to nonoperative intervention. POSTOPERATIVE DIAGNOSIS: 1. T11-T12 severe spinal cord compression with myelopathy. 2. Adjacent level breakdown at L1-L2, L2-L3 with spinal stenosis and history of spinal fusion L3 through S1. 3. Low back pain. 4. Lower extremity claudication and weakness. 5. Treatment refractory to nonoperative intervention. 6. 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 PROCEDURE PERFORMED: 1. Posterior arthrodesis with approach to L1, L2, L3, L4, L5, and S1. 2. Exploration of prior lumbar hardware L3 through S1 with subsequent removal of segmental hardware including left L3, right S1 screw and bilateral rods. 3. Placement of new bilateral pedicle screws into L1 and L2 from the [employer] Solera 4.75 system. 4. Replacement of left L3 and right S1 screws from the [employer] Solera 4.5 system. 5. Redo arthrodesis bilaterally L5-S1. 6. Posterolateral fusion on the right between L1 and L3 and bilaterally between L5 and S1 with morselized autograft and allograft. 7. Decompressive laminectomy with bilateral medial facetectomies, T11-T12. 8. Decompressive laminectomy with bilateral medial facetectomies, L1-L2 and L2- L3. 9. Left-sided L1-L2 transforaminal lumbar interbody fusion with an 8 x 26 mm titanium coated PEEK cage filled with morselized autograft and allograft. 10. Left-sided L2-L3 transforaminal lumbar interbody fusion with a 6 x 26 mm titanium coated PEEK cage filled with morselized autograft and allograft. 11. Use of intraoperative 3D Stealth navigation. 12. Use of intraoperative fluoroscopy, less than 1 hour physician time. 13. Use of neuro monitoring. 14. Use of the operating microscope. 15. Injection of preservative-free intrathecal narcotics. FINDINGS: pseudoarthrosis L5/S1 with loose right S1 screw and medialized left L3 screw SPECIMENS: Hardware was cultured for microorganisms sent to Microbiology. ESTIMATED BLOOD LOSS: 800 mL of which 500 mL was given back via the Cell Saver. INDICATIONS: The patient is a 62-year-old gentleman who has undergone prior multiple spinal fusions of which the most recent was L3 through S1. The patient presented with worsening lower extremity weakness and claudication and back pain. Imaging demonstrated adjacent level breakdown at L1-L2 and L2-L3 with severe spinal stenosis T11-T12. After discussion of the risks, benefits, and treatment alternatives and after failing nonoperative intervention, we decided to proceed forth with surgery as described above. Please note that during the surgery and exploration of the hardware, the patient was noted to have a pseudoarthrosis of L5-S1 which was not appreciated on his preoperative imaging studies. We then had to redo the fusion at this level, which was not anticipated. We also lateralized the left L3 screw in order to better place the rods. Please note that this surgery is greater 50% more challenging than the average surgery secondary to the patient's body habitus, the scar tissue and the need for revision surgery at the adjacent level of which he had prior surgeries. DESCRIPTION OF PROCEDURE: Patient was brought to the operating theater and underwent general endotracheal anesthesia without complications. He had Venodynes, UMU hose and appropriate lines placed by Anesthesia. He was flipped prone onto a Malcolm table. All bony processes were inspected and well padded. The previous lumbar incision was identified and marked more cranially and caudally. This area was then prepped and draped in the usual sterile surgical fashion. A time-out was completed per protocol, and the patient received antibiotics within 1 hour of incision. The incision was taken down with the scalpel blade and using monopolar, taken down the midline through the lumbodorsal fascia and a subperiosteal dissection carried out at T11-T12 to the medial facet joints. We also continued onto the L1-L3 levels and exposed it to the transverse processes. We then exposed the prior hardware at L3 and down to the S1 levels. Deep retractors were placed to maintain our exposure. We then removed the bilateral cap screws from the L3 through S1 levels and passed them off the field. We then removed the bilateral rods. Upon removing the rods, we explored the hardware and noted that he had a pseudoarthrosis/nonunion at the L5-S1 level with evidence of movement between the L5 and S1 screws and that the screw on the right side at S1 was noted to be loose. We re-examined his films and noted that he did have some haloing around the right-sided S1 screw. We cleaned the tissues out around the L5-S1 levels bilaterally and replaced the right-sided S1 screw after removing it with a 7.5 x 60 mm screw, also making it bicortical. We then moved up and attached the 3D Stealth navigation clamp to the spinous process of L4. We completed a 3D Stealth navigation spin and using 3D navigation we placed the airplane patrol pilot holes for the bilateral pedicle screws in L1 and L2. All holes were manually palpated with no evidence of cortical breaches. We tapped and placed 6.5 x 55 mm screws bilaterally into L1 and L2 from the [employer] 4.75 system. The left-sided L3 screw was noted to be quite medial, and I, therefore, removed it and replaced it with another 6.5 x 55 mm screw in a more lateral to medial trajectory. Another 3D Stealth navigation spin demonstrated good placement of the hardware. Using the 3D Stealth navigation system, I completed a decompressive laminectomy with bilateral medial facetectomies at the T11-T12 level and then L1 through L3 levels. The tissues were passed off the field. We then completed an aggressive facetectomy on the left side between L1-L2 and L2-L3. We moved to the L1-L2 level on the left side where we distracted the interspace and completed a left-sided L1-L2 diskectomy. We prepared the cartilaginous endplates and measured the interbody space. We placed an 8 x 26 mm titanium coated PEEK cage filled with morselized autograft and allograft anteriorly and toward the midline. We packed additional morcellized autograft in the disk space for the interbody fusion. We let down the distraction and moved down to L2-L3 where we completed a left-sided L2-3 discectomy and prepared the cartilaginous endplates. We measured the interbody space and placed a 6 x 26 mm titanium coated PEEK cage filled with morselized autograft and allograft anteriorly and toward the midline. We packed additional morcellized autograft in the disk space for the interbody fusion. We let down the distraction and decorticated the bone on the right side between L1-L3 and bilaterally between L5 and S1. The wound was irrigated copiously with bacitracin irrigation. We placed 2 rods into the heads and screws between L1 and S1 and secured them down with cap screws which were then tightened to the per diem's setting. We placed morselized autograft and allograft on the right side between L1-L3 and bilaterally between L5 and S1 for the posterolateral fusion. A drain was left in the subfascial space and we injected Intrathecal narcotics. The wound was then closed in multiple layers including Vicryl sutures for the deep layers and Dermabond for the skin. The patient's wounds were dressed sterilely. He was flipped supine onto the transfer cart, where he was awakened, extubated and taken to the recovery room in stable condition. There were no complications and no noted changes on neuromonitoring throughout the procedure. COMPLICATIONS: None. /[id number]/MODL MTDD
[2018-02-04] MEDS: COLCHICINE 0.6 MG CAP/TAB PO SCH (20:06)
[2018-02-04] MEDS: SENNOSIDES/DOCUSATE SODIUM TAB PO SCH (20:07)
[2018-02-04] MEDS: FAMOTIDINE 20 MG TAB PO SCH (20:27)
[2018-02-04] MEDS: TAMSULOSIN HCL 0.4 MG CAP PO SCH (20:27)
[2018-02-04] MEDS: ACETAMINOPHEN 500 MG TAB PO SCH (21:02)
[2018-02-05] MEDS: ceFAZolin 2 GM/DEXTROSE 100 ML IV SCH (02:06)
[2018-02-05] MEDS: ACETAMINOPHEN 500 MG TAB PO SCH ×3 (05:02→22:30)
[2018-02-05] MEDS: SENNOSIDES/DOCUSATE SODIUM TAB PO SCH ×2 (08:06→20:24)
[2018-02-05] MEDS: FAMOTIDINE 20 MG TAB PO SCH ×2 (08:06→20:25)
[2018-02-05] MEDS: METHOCARBAMOL 750 MG TAB PO PRN ×3 (08:06→22:31)
[2018-02-05] MEDS: NS 1,000 ML IV SCH (08:32)
[2018-02-05] MEDS: COLCHICINE 0.6 MG CAP/TAB PO SCH (08:33)
[2018-02-05] MEDS ORDERED: LOSARTAN POTASSIUM 50 MG TAB PO SCH (09:00)
[2018-02-05] MEDS ORDERED: PANTOPRAZOLE SODIUM 40 MG TAB PO PRN (09:00)
--- NOTE | 2018-02-05 10:31 | NEUSURGPN ---
Date of Surgery: 02/04/18 Post Op Day: 1 Assessment/Plan: Assessment: 62y/o male s/p T11/12 laminectomy, L1-S1 PSF, L1-3 TLIF with redo arthrodesis L5/S1 POD#1 -Ok to transfer to floor -Optimize pain management, patient received intra-op IT narcotics, will need to anticipate oral medication increase later today. Patient was on MS Contin and Oxycodone post operatively with his last surgery. -PT/OT -Post op xrays pending -Advance diet as tolerated -JACE drain x1 -DVT prophx: TEDs, SCDs, Lovenox okay POD#2 -Patient discussed with Dr Spain -Please notify NS with any change in neuro/motor exam Subjective: Sitting in chair, denies pain at this time Objective: AxO x3 PERRLA 5/5 BLE Sensation intact to light touch BLE Dressing/incision CDI JACE patent Neuro Check Frequency: per routine Urinary Catheter in Place: No Catheter Insertion Date: 02/04/18 - Physician Discussed Patient with Dr.: Spain Neurosurgery Physical Exam - Vitals, I&O, Labs I and O 02/04/18 02/05/18 02/06/18 05:59 05:59 05:59 Intake Total 5120 Output Total 2065 Balance 3055 Weight 111.13 kg Intake: Oral (ml) 500 IV Intake (ml) 3800 IV Infused (ml) 820 Ns 1,000 ml @ 75 mls/hr 710 IV CONT ELI Rx#: [id number] ceFAZolin 2 GM/DEXTROSE 110 100 ml @ 200 mls/hr IV Q8H ELI Rx#:[id number] Output: Urine (ml) 950 Catheter 950 Estimated Blood Loss (ml) 800 JACE Drain Output (ml) 315 Posterior Back Malcolm 315 [place] Microbiology 02/04/18 12:07 Gram Stain - Final Other - Eswab Vital Signs Temp Pulse Resp BP Pulse Ox 36.7 C 68 22 H 107/60 95 02/05/18 08:00 02/05/18 08:00 02/05/18 08:00 02/05/18 08:00 02/05/18 08:00 ICD10 Worksheet Patient Problems: Problems Problem Status Onset Arthritis of left knee Acute Arthrodesis status Acute Dyspnea Acute Hypoxia Acute Lumbar radicular pain Acute Lumbar stenosis Acute
--- NOTE | 2018-02-05 11:44 | ASMTCMCOM ---
CM Note CM Note Notes: Patient is POD 1 T11-12 lami, L1-S1 PSF, L1-3 TLIF. I spoke w he and his partner Priscilla. They're not sure yet where patient will discharge. They live in [facility], in the [facility]. They've rented a place in [place] for the week but are concerned that the beds aren't great (too low). Patient's partner doesn't drive, hence them wanting to convalesce down in [place]. We talked about the options, including home care and SNF, and they'll think about it. Patient won't really have a need for home PT per neurosurg. Case Management will follow. Date Signed: 02/05/2018 11:44 AM Electronically Signed By:Echo Scott RN
[2018-02-05] MEDS: oxyCODONE IR 5 MG TAB PO PRN ×3 (11:45→22:31)
[2018-02-05] MEDS: LOSARTAN POTASSIUM 50 MG TAB PO SCH (20:22)
[2018-02-05] MEDS: TAMSULOSIN HCL 0.4 MG CAP PO SCH (20:22)
[2018-02-05] MEDS: morphINE SR 15 MG TAB PO SCH (20:25)
[2018-02-06] MEDS: oxyCODONE IR 5 MG TAB PO PRN ×2 (05:31→19:36)
[2018-02-06] MEDS: METHOCARBAMOL 750 MG TAB PO PRN ×2 (05:31→19:36)
[2018-02-06] MEDS: ACETAMINOPHEN 500 MG TAB PO SCH ×3 (05:31→22:22)
[2018-02-06] MEDS: SENNOSIDES/DOCUSATE SODIUM TAB PO SCH ×2 (09:27→22:23)
[2018-02-06] MEDS: FAMOTIDINE 20 MG TAB PO SCH ×2 (09:27→22:21)
[2018-02-06] MEDS: morphINE SR 15 MG TAB PO SCH ×2 (09:27→22:25)
[2018-02-06] MEDS: ENOXAPARIN 40 MG/0.4 ML SYR SC SCH (09:27)
--- NOTE | 2018-02-06 11:00 | NEUSURGPN ---
Date of Surgery: 02/04/18 Post Op Day: 2 Assessment/Plan: Assessment: 62y/o male s/p T11/12 laminectomy, L1-S1 PSF, L1-3 TLIF with redo arthrodesis L5/S1 POD#2 -Optimize pain management, patient received intra-op IT narcotics, will need to anticipate oral medication increase later today. Patient was on MS Contin and Oxycodone post operatively with his last surgery. -PT/OT -Post op xrays show stable hardware placement without complication -JACE drain x1-will leave in today -Change dressing today -DVT prophx: TEDs, SCDs, Lovenox okay POD#2 -Patient discussed with Dr Spain -Please notify NS with any change in neuro/motor exam Subjective: Doing well, pain managed with current oral medications Objective: AxO x3 PERRLA 5/5 BUE, BLE Sensation intact to light touch BLE Dressing/incision CDI JACE patent Neuro Check Frequency: per routine Urinary Catheter in Place: No Catheter Insertion Date: 02/04/18 - Physician Discussed Patient with Dr.: Spain Neurosurgery Physical Exam - Vitals, I&O, Labs I and O 02/05/18 02/06/18 02/07/18 05:59 05:59 05:59 Intake Total 5120 600 Output Total 2065 2580 Balance 3055 -1980 Weight 111.13 kg Intake: Oral (ml) 500 600 IV Intake (ml) 3800 IV Infused (ml) 820 Ns 1,000 ml @ 75 mls/hr 710 IV CONT ELI Rx#: [id number] ceFAZolin 2 GM/DEXTROSE 110 100 ml @ 200 mls/hr IV Q8H ELI Rx#:[id number] Output: Urine (ml) 950 2300 Catheter 950 Toilet 1800 Urinal 500 Estimated Blood Loss (ml) 800 JACE Drain Output (ml) 315 280 Posterior Back Malcolm 315 280 [place] Other: Intake Quantity Yes Sufficient Number of Voids Toilet 1 Bladder Scan Volume (ml) Toilet 450 Post Void Residual Scan Volume (ml) Toilet 136 Microbiology 02/04/18 12:07 Gram Stain - Final Other - Eswab Vital Signs Temp Pulse Resp BP Pulse Ox 36.7 C 75 14 102/62 93 02/06/18 07:11 02/06/18 07:11 02/06/18 07:11 02/06/18 07:11 02/06/18 07:11 ICD10 Worksheet Patient Problems: Problems Problem Status Onset Arthritis of left knee Acute Arthrodesis status Acute Dyspnea Acute Hypoxia Acute Lumbar radicular pain Acute Lumbar stenosis Acute
[2018-02-06] MEDS: POLYETHYLENE GLYCOL 3350 17 GM PKT PO PRN (22:21)
[2018-02-06] MEDS: LOSARTAN POTASSIUM 50 MG TAB PO SCH (22:25)
[2018-02-06] MEDS: TAMSULOSIN HCL 0.4 MG CAP PO SCH ×2 (22:25→22:29)
[2018-02-07] MEDS: ACETAMINOPHEN 500 MG TAB PO SCH ×3 (04:55→22:52)
[2018-02-07] MEDS: FAMOTIDINE 20 MG TAB PO SCH ×2 (09:12→20:52)
[2018-02-07] MEDS: SENNOSIDES/DOCUSATE SODIUM TAB PO SCH ×2 (09:12→20:50)
[2018-02-07] MEDS: morphINE SR 15 MG TAB PO SCH ×2 (09:12→20:52)
[2018-02-07] MEDS: ENOXAPARIN 40 MG/0.4 ML SYR SC SCH (09:15)
[2018-02-07] MEDS: POLYETHYLENE GLYCOL 3350 17 GM PKT PO PRN (09:21)
--- NOTE | 2018-02-07 10:30 | NEUSURGPN ---
Date of Surgery: 02/04/18 Post Op Day: 3 Assessment/Plan: Assessment: 62y/o male s/p T11/12 laminectomy, L1-S1 PSF, L1-3 TLIF with redo arthrodesis L5/S1 POD#3 -Optimize pain management, patients pain mostly controlled. Will change Robaxin to scheduled. Ok to place ice to incisional area. -Post op xrays show stable hardware placement without complication -DC JACE drain -Ok to shower after JACE removal -Patient has not had BM yet, RN working on bowel protocol -Patient reports some urinary "dribble" reduced flomax dose and feels this has improved things -PT has signed off -DVT prophx: TEDs, SCDs, Lovenox okay -Anticipate discharge home tomorrow if doing well -Patient discussed with Dr Spain -Please notify NS with any change in neuro/motor exam Subjective: Some incisional discomfort Objective: AxO x3 5/5 BLE Sensation intact to light touch BLE Incision CDI with dermabond, dressing CDI JACE patent Neuro Check Frequency: per routine Urinary Catheter in Place: No Catheter Insertion Date: 02/04/18 - Physician Discussed Patient with Dr.: Spain Neurosurgery Physical Exam - Vitals, I&O, Labs I and O 02/06/18 02/07/18 02/08/18 05:59 05:59 05:59 Intake Total 600 800 852 Output Total 2580 900 Balance -1980 -100 852 Intake: Oral (ml) 600 800 500 Tube Feeding (ml) 302 Tube Flush (ml) 50 Output: Urine (ml) 2300 900 Toilet 1800 900 Urinal 500 JACE Drain Output (ml) 280 Posterior Back Malcolm 280 [place] Other: Intake Quantity Yes Yes Sufficient Number of Voids Toilet 1 3 Bladder Scan Volume (ml) Toilet 450 Post Void Residual Scan Volume (ml) Toilet 136 Microbiology 02/04/18 12:07 Gram Stain - Final Other - Eswab Vital Signs Temp Pulse Resp BP Pulse Ox 37.7 C 85 15 117/67 93 02/07/18 08:00 02/07/18 08:00 02/07/18 08:00 02/07/18 08:00 02/07/18 09:25 ICD10 Worksheet Patient Problems: Problems Problem Status Onset Arthritis of left knee Acute Arthrodesis status Acute Dyspnea Acute Hypoxia Acute Lumbar radicular pain Acute Lumbar stenosis Acute
--- NOTE | 2018-02-07 10:54 | ASMTCMCOM ---
CM Note CM Note Notes: Chart reviewed. Met with patient and his partner. They have rented a place in [place] to give his time to heal [place] and she [place]'t drive. Per therapy he has been released . Likely to discharge tomorrow. No needs identified CM available should other needs arise. Plan: To dc home with family support. Date Signed: 02/07/2018 10:53 AM Electronically Signed By:Anisha Ritchie RN
[2018-02-07] MEDS: METHOCARBAMOL 750 MG TAB PO SCH ×3 (11:07→20:54)
[2018-02-07] MEDS: TAMSULOSIN HCL 0.4 MG CAP PO SCH (20:51)
[2018-02-07] MEDS: LOSARTAN POTASSIUM 50 MG TAB PO SCH (20:52)
[2018-02-07] MEDS: oxyCODONE IR 5 MG TAB PO PRN (22:53)
[2018-02-08] MEDS: ACETAMINOPHEN 500 MG TAB PO SCH (05:31)
[2018-02-08] MEDS: METHOCARBAMOL 750 MG TAB PO SCH ×2 (05:32→12:02)
[2018-02-08 07:24] VITALS: BP 99/78
[2018-02-08] MEDS: ENOXAPARIN 40 MG/0.4 ML SYR SC SCH (07:26)
[2018-02-08] MEDS: oxyCODONE IR 5 MG TAB PO PRN ×2 (07:27→12:01)
--- NOTE | 2018-02-08 07:27 | SOAPPROG ---
SOAP Progress Note Assessment/Plan: Assessment: 62 yo M sp L1-S1 fusion with T11/12 laminectomy Plan: neuro: stable and doing well overall :) PT/OT scd/tello/lovenox for dvt prophylaxis post op x-rays look great dc home today please call with neuro changes discussed with DR Leo 02/08/18 07:24 Subjective: back pain improving, no leg pain, no weakness. Objective: Vital Signs Temp Pulse Resp BP Pulse Ox 37.2 C 108 H 18 99/78 L 96 02/08/18 07:22 02/08/18 07:22 02/08/18 07:22 02/08/18 07:22 02/08/18 07:22 Microbiology 02/04/18 12:07 Gram Stain - Final Other - Eswab 02/07/18 02/08/18 02/09/18 05:59 05:59 05:59 Intake Total 800 2352 Output Total 900 30 Balance -100 2322 AAOx4, +FC PERRL, EOMI, no facial droop 5/5 + light touch C/D/I ICD10 Worksheet Patient Problems: Problems Problem Status Onset Arthritis of left knee Acute Arthrodesis status Acute Dyspnea Acute Hypoxia Acute Lumbar radicular pain Acute Lumbar stenosis Acute
[2018-02-08] MEDS: SENNOSIDES/DOCUSATE SODIUM TAB PO SCH (07:28)
[2018-02-08] MEDS: FAMOTIDINE 20 MG TAB PO SCH (07:28)
[2018-02-08] MEDS: morphINE SR 15 MG TAB PO SCH (07:30)
--- NOTE | 2018-02-08 13:57 | ASMTLACE ---
LACE Length of stay for Answers: 4-6 days current admission Acuity / Level of Answers: Yes Care: Did the patient have an inpatient admission? Comorbidities - select Answers: Opioid dependence all that apply / Chronic pain Other Notes: HTN # of Emergency department Answers: 1-2 visits in the last 6 months Score: 13 Date Signed: 02/08/2018 01:56 PM Electronically Signed By:MOLLY Rodriguez
--- NOTE | 2018-03-02 15:25 | GDS ---
[f rep st] DISCHARGE SUMMARY ADMISSION DIAGNOSES: T11-T12 severe spinal cord compression with adjacent level breakdown at L1-2, L 2-3 with severe spinal stenosis and history of spinal fusion L3 to S1. DISCHARGE DIAGNOSES: T11-T12 severe spinal cord compression with adjacent level breakdown at L1-2, L 2-3 with severe spinal stenosis and history of spinal fusion L3 to S1. Pseudoarthrosis at L5-S1 with loose hardware on the left of the S1 screw. PROCEDURES: On 02/04/2018, posterior arthrodesis with approach L1 to S1. Exploration of prior lumba r fusion with removal of the left S1 screw and redo arthrodesis on the left S1, left-sided L1-2 and L 2-3 trans lumbar interbody fusions, a decompressive laminectomy at T11, T12, and L1-2 and L2-3. HOSPITAL COURSE, HISTORY, AND MAJOR MEDICAL FINDINGS: The patient is a 62-year-old gentleman who has undergone multiple prior spinal fusions with the most recent was L3 to S1. He presented with worsen ing lower extremity radiculopathy with weakness and claudication. His imaging demonstrated breakdown at L1-2, L2-3, and severe spinal stenosis at T11-T12. Based on this, risks, benefits and alternativ es to proceeding with surgery were thoroughly discussed with the patient. Intraoperatively, it was n oted that he did have pseudoarthrosis at L5-S1 which was not appreciated on his preoperative studies. He had a redo decompression at L5-S1 based on intraoperative findings, as well as further lateraliz ation of the left L3 screw after exploration. The patient tolerated this procedure well. For full o perative details, please see Dr. Spain's operative note in the EMR system. The patient was extubate d in the OR and then transferred to the floor once awake and alert in the PACU. He worked with Physi lily and Occupational Therapy. His diet was advanced. His pain management was optimized. His postop erative JACE drain was removed without complication. He underwent postoperative x-rays which demonstra tello intact hardware without any evidence of failure. He was deemed fit for discharge to home on 09/2017. DISCHARGE MEDICATIONS: Include morphine sulfate Contin 15 mg 1 p.o. b.i.d., Norvasc 10 mg 1 p.o. q.h .s., gabapentin 40 mg 1 p.o. daily, albuterol inhaler 1-2 puffs q.4 hours p.r.n. wheezing, Flomax 0.4 mg 1 p.o. q.h.s., Protonix 20 mg 1 p.o. q.h.s., losartan 100 mg 1 p.o. q.h.s., methocarbamol 750 mg 1 p.o. q.i.d. p.r.n. muscle spasm, oxycodone 5-10 mg p.o. q.4 hours p.r.n. pain. DISCHARGE INSTRUCTIONS: The patient is instructed to wear his lumbar corset whenever he is up and ou t of bed. He is to avoid all bending and twisting and not lifting anything greater than 5-10 pounds. The patient is not to drive while taking narcotic pain medication. If the patient develops a fever greater than 100.5, any redness, swelling, discharge, or pain that is not alleviated by his pain medication, he is encouraged to give the [facility] office a ca ll. If the patient develops any life-threatening emergent conditions, such as chest pain, signs or sympto ms of stroke, or gross motor loss in his bilateral upper or bilateral lower extremities, he is encour aged to go to his local emergency room. FOLLOWUP CARE: Patient should follow up with Dr. Spain or one of his PAs in approximately 2-3 weeks . If he has any questions or concerns prior to that time, he is encouraged to give our office a call . The patient is to follow up with his primary care provider in approximately 2-3 weeks. /[id number]/MODL
== END 2018-02-08 14:27 | disposition home or self-care (01) | DRG 454 ==
LOC: F3N 08:43 → F2N 11:21 → F3N 02-05 17:03
PROVIDERS: ADMIT Neurological Surgery; ATTEND Neurological Surgery
PROC: 0SP304Z Removal of Internal Fixation Device from Lumbosacral Joint, Open Approach (ICD-10-PCS; principal; 2018-02-04 10:45)
PROC: 00NX0ZZ Release Thoracic Spinal Cord, Open Approach (ICD-10-PCS; principal; 2018-02-04 10:45)
PROC: 0SG1071 Fusion of 2 or more Lumbar Vertebral Joints with Autologous Tissue Substitute, Posterior Approach, Posterior Column, Open Approach (ICD-10-PCS; principal; 2018-02-04 10:45)
PROC: BR1 Imaging, Axial Skeleton, Except Skull and Facial Bones, Fluoroscopy (ICD-10-PCS; principal; 2018-02-04 10:45)
PROC: 0SG10AJ Fusion of 2 or more Lumbar Vertebral Joints with Interbody Fusion Device, Posterior Approach, Anterior Column, Open Approach (ICD-10-PCS; principal; 2018-02-04 10:45)
PROC: 00NY0ZZ Release Lumbar Spinal Cord, Open Approach (ICD-10-PCS; principal; 2018-02-04 10:45)
PROC: 8E0WXBZ Computer Assisted Procedure of Trunk Region (ICD-10-PCS; principal; 2018-02-04 10:45)
PROC: 4A10X4G Monitoring of Central Nervous Electrical Activity, Intraoperative, External Approach (ICD-10-PCS; principal; 2018-02-04 10:45)
DX: M51.04 Intervertebral disc disorders with myelopathy, thoracic region (principal); M96.0 Pseudarthrosis after fusion or arthrodesis; T84.296A Other mechanical complication of internal fixation device of vertebrae, initial encounter; M48.04 Spinal stenosis, thoracic region; M48.061 Spinal stenosis, lumbar region without neurogenic claudication; M51.36 Other intervertebral disc degeneration, lumbar region; Z98.1 Arthrodesis status; G47.33 Obstructive sleep apnea (adult) (pediatric); G43.909 Migraine, unspecified, not intractable, without status migrainosus; N40.1 Benign prostatic hyperplasia with lower urinary tract symptoms; R35.1 Nocturia; B18.2 Chronic viral hepatitis C
CPT/HCPCS: 97116-GP; 97161-GP; 97165-GO; 97530-GO; 97535-GO; C1713; G8987-GO-CJ; G8988-GO-CI; J0171; J0690; J1100; J1170; J1650; J2250; J2274; J2370; J2405; J2704; J3010; J7060

== ENCOUNTER 2018-02-19 12:09 | Observation (INO) | payer OTHER ==
[2018-02-19] MEDS ORDERED: NS 500 ML IV ONE (13:00)
--- NOTE | 2018-02-19 13:23 | EDPHY ---
H & P Time Seen by Provider: 02/19/18 12:57 HPI/ROS: HPI Right foot pain. 62-year-old male by private vehicle with his and daughter. This patient has a history of a lumbar spinal fusion 2 weeks ago. He also has a history of gout and pseudogout. He presents to the emergency department complaining of atraumatic right foot pain ongoing for the last 2 and half days. It has been worsening over this time. He is now unable to bear significant weight on the foot. He describes the foot is being diffusely swollen. 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 He reports he has had exacerbations of foot pain in the past similar to this but not as severe and they have not lasted as long. He currently has been ambulating with a walker. ROS: Constitutional: No fever, no chills. No weakness. Respiratory: No cough. No shortness of breath. Cardiac: No chest pain, no palpitations. Gastrointestinal: No abdominal pain, no vomiting, no diarrhea. Musculoskeletal: No back pain. No neck pain. As above. Denies other extremity pain. Skin: No rashes. Neurological: No headache. No focal weakness or altered sensation. Past medical history: Hypertension, gout, migraines, hepatitis-C, appendectomy , tonsillectomy, maxillary surgery, cataracts, bilateral knee replacements, spinal fusion L1 through S1 [address] pSain. The patient has a history of narcotic pain medication abuse. Social history: Nonsmoker. 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 Here with his and daughter. Denies alcohol. Physical Exam: General Appearance: Alert, no distress. This patient is responding to questions appropriately and in full sentences. This patient appears well- hydrated and well-nourished. Right foot exam/right lower extremity: Diffuse swelling involving the entire foot and distal aspects of the ankle. There is associated warmth and patchy erythema involving the dorsal aspect of the foot from the 2nd digit going to the proximal aspect of the dorsal foot and laterally. No tophus identified. The 1st metatarsal phalangeal joint is unremarkable. The ankle is nontender on palpation. He does not have pain induced with ranging of the ankle or the toes. There appears to be a mild extension contracture involving the 2nd toe. The right foot is neurovascularly intact. Neurological: Motor sensory function is grossly intact. Cranial nerves are normal. Skin: Warm and dry, no rashes. Musculoskeletal: Neck is supple and nontender. Extremities are symmetrical. All joints range without pain or impingement. Psychiatric: No agitation. No depression. Database: EKG: Imaging: Right foot x-ray series: Significant for small fracture, medial aspect, 5th toe proximal phalanx base intra-articular, no subluxation, no dislocation. Interpreted by me. Right lower extremity Doppler ultrasound: Negative for DVT. Results were discussed with staff radiologist Dr. Al Tafoya. Procedures: Emergency department course: IV was placed. Triage vital signs reviewed. Afebrile. Mildly tachycardic. He was started on IV normal saline with 500 cc to be given over the next hour. We have spoken with the neurosurgical service, specifically a PA named Britney. They do not want any steroids given but feel that Toradol should be given as needed. They are concerned he may developed a DVT if he is not up and ambulating. 3:30 p.m., patient re-evaluated. Recent vital signs reviewed. Afebrile. Tachycardia resolved. Results of diagnostic testing discussed with him and family. X-ray of right foot with noted proximal phalanx fracture of 5th toe, and right lower extremity ultrasound were unremarkable. I do not feel that this toe fracture is a significant source of his pain or complaint. My concern at this time is infection and advancing cellulitis. Blood cultures have been drawn. The patient will be started on IV Ancef 2 g to be given in the emergency department. He does not feel he can't ambulate on the foot at this time. [place] Hospitalist has been paged for admission. The area of erythema and edema on his foot has been demarcated with a tissue marker pen. 3:35 p.m., spoke with on-call hospitalist. Case discussed in detail. Patient admitted to the hospitalist service in stable condition. Patient right ft placed in an orthopedic boot. Differential Diagnosis: The differential diagnosis on this patient includes but is not limited to cellulitis, gout, pseudogout, DVT. Radiculopathy unlikely. This represents a partial list of diagnoses considered. These considerations are based on history , physical exam, past history, reassessment and diagnostic testing. Smoking Status: Former smoker Constitutional: Initial Vital Signs Temperature (C) 36.9 C 02/19/18 12:13 Heart Rate 116 H 02/19/18 12:13 Respiratory Rate 16 02/19/18 12:13 Blood Pressure 112/90 H 02/19/18 12:13 O2 Sat (%) 96 02/19/18 12:13 O2 Delivery Mode Room Air Allergies/Adverse Reactions: No Known Allergies Allergy (Verified 01/26/18 12:19) Home Medications: Medication Instructions Recorded Pantoprazole Sodium [Protonix 40mg 20 mg PO HS PRN 02/13/16 (*)] amLODIPine BESYLATE [Norvasc 10 mg 10 mg PO HS 02/13/16 (*)] GABAPENTIN 400 mg PO DAILY PRN 06/11/17 Tamsulosin HCl [Flomax 0.4 MG (*)] 0.4 mg PO HS 06/11/17 Albuterol [Proventil Inhaler HFA 1 - 2 puffs IH Q4H PRN 01/25/18 (*)] Losartan Potassium 100 mg PO DAILY 01/25/18 Sildenafil Citrate 100 mg PO DAILY PRN 01/26/18 oxyCODONE IR [Oxycodone Ir (*)] 5 - 10 mg PO Q4HRS PRN tab 02/08/18 Methocarbamol [Robaxin 750 mg (*)] 750 mg PO QID PRN 02/19/18 morphINE SR [Ms Contin/Oramorph 15 15 mg PO HS 02/19/18 mg (*)] Medical Decision Making - Diagnostics Imaging Results: Imaging Impressions Extremity Venous Study 02/19/18 13:14 Impression: No deep venous thrombosis right leg. Findings and recommendations discussed with Emergency Department physician, Dalton Holland MD at 13:56 hour, 02/19/2018. Final report concurs with initial preliminary interpretation. - Data Points Laboratory Results: Laboratory Results 02/19/18 13:33 02/19/18 13:33 02/19/18 02/19/18 13:33 13:33 WBC 14.42 10^3/uL H 10^3/uL (3.80-9.50) RBC 4.94 10^6/uL 10^6/uL (4.40-6.38) Hgb 13.2 g/dL L g/dL (13.7-17.5) Hct 41.2 % % (40.0-51.0) MCV 83.4 fL fL (81.5-99.8) MCH 26.7 pg L pg (27.9-34.1) MCHC 32.0 g/dL L g/dL (32.4-36.7) RDW 16.2 % H % (11.5-15.2) Plt Count 504 10^3/uL H 10^3/uL (150-400) MPV 9.4 fL fL (8.7-11.7) Neut % (Auto) Not Reported Lymph % (Auto) Not Reported [place] % (Auto) Not Reported Eos % (Auto) Not Reported Baso % (Auto) Not Reported Nucleat RBC Rel Count Not Reported Absolute Neuts (auto) Not Reported Absolute Lymphs (auto) Not Reported Absolute Monos (auto) Not Reported Absolute Eos (auto) Not Reported Absolute Basos (auto) Not Reported Absolute Nucleated RBC Not Reported Immature Gran % Not Reported Seg Neutrophils % 80.0 % % Band Neutrophils % 6.0 % % Lymphocytes % 6.0 % % Monocytes % 8.0 % % Eosinophils % 0 % % Basophils % 0 % % Metamyelocytes % 0 % % Myelocytes % 0 % % Promyelocytes % 0 % % Blast Cells % 0 % % Immature Gran # Not Reported Absolute Seg Neuts 11.54 10^/uL H 10^/uL (1.70-6.50) Absolute Band Neuts 0.87 10^3/uL H 10^3/uL (0.00-0.70) Absolute Lymphocytes 0.87 10^3/uL L 10^3/uL (1.00-3.00) Absolute Monocytes 1.15 10^3/uL H 10^3/uL (0.30-0.80) Absolute Eosinophils 0.00 10^3/uL L 10^3/uL (0.03-0.40) Absolute Basophils 0.00 10^3/uL L 10^3/uL (0.02-0.10) Absolute Metamyelocyte 0.00 10^3/mL 10^3/mL (0.00-0.00) Absolute Myelocytes 0.00 10^3/mL 10^3/mL (0.00-0.00) Absolute Promyelocytes 0.00 10^3/uL 10^3/uL (0.00-0.00) Absolute Plasma Cells 0.00 10^3/uL 10^3/uL (0.00-0.00) Nucleated RBCs 0 /100 WBC /100 WBC (0-0) RBC/WBC/PLT Morphology NORMAL (NORMAL) Absolute Blast Cells 0.00 10^3/uL 10^3/uL (0.00-0.00) Plasma Cells % 0 % % Platelet Estimate INCREASED H (ADEQ) Sodium 134 mEq/L L mEq/L (135-145) Potassium 5.2 mEq/L H mEq/L (3.3-5.0) Chloride 101 mEq/L mEq/L (97-110) Carbon Dioxide 23 mEq/l mEq/l (22-31) Anion Gap 10 mEq/L mEq/L (8-16) BUN 20 mg/dL mg/dL (7-23) Creatinine 1.1 mg/dL mg/dL (0.7-1.3) Estimated GFR > 60 Glucose 98 mg/dL mg/dL (70-100) Uric Acid 7.2 mg/dL mg/dL (3.5-8.5) Calcium 9.4 mg/dL mg/dL (8.5-10.4) Medications Given: Discontinued Medications Sodium Chloride (Ns) 500 mls @ 0 mls/hr IV EDNOW ONE; Wide Open PRN Reason: Protocol Stop: 02/19/18 13:01 Last Admin: 02/19/18 13:49 Dose: 500 mls Ketorolac Tromethamine (Toradol) 30 mg IVP EDNOW ONE Stop: 02/19/18 14:21 Last Admin: 02/19/18 14:46 Dose: 30 mg Departure - Departure Disposition: [facility] In[facility] Acute Clinical Impression: Right foot pain, Cellulitis of foot, Toe fracture, right
[2018-02-19 13:59] LABS: PLATELET COUNT 504 10^3/uL (150-400)
[2018-02-19] MEDS ORDERED: KETOROLAC 30 MG/1 ML SDV IVP ONE (14:20)
[2018-02-19] MEDS ORDERED: ceFAZolin 2 GM/DEXTROSE 100 ML IV ONE (15:33)
[2018-02-19] MEDS ORDERED: ONDANSETRON 4 MG/2 ML VIAL IVP PRN (16:04)
[2018-02-19] MEDS ORDERED: ACETAMINOPHEN 325 MG TAB PO PRN (16:04)
[2018-02-19] MEDS ORDERED: ONDANSETRON DISINTEGRATING 4 MG TAB PO PRN (16:04)
[2018-02-19] MEDS ORDERED: NS 1,000 ML IV SCH (16:15)
--- NOTE | 2018-02-19 16:40 | GHP ---
[f rep st] HISTORY AND PHYSICAL DATE OF ADMISSION: 02/19/2018 CHIEF COMPLAINT: Right foot pain. 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 Notably, he had an L1 to S1 fusion surgery by Dr. Spain about 2 weeks ago. After that, he was doing well. He notes that his back pain is relatively well controlled on medications. About 2 days ago his right foot became very swollen. He did not have any significant trauma to it. He has a hist ory of what he suspects is pseudogout and had been treating himself with colchicine. It showed no im provement. He has not had any fevers at home. He does not have a history of diabetes. He does say that he has had a history of gout diagnosed by joint aspiration of his right elbow. He h as had episodes of a swollen right foot. However, he has not had uric acid crystals aspirated from h is foot. He suspects that he has both gout as well as pseudogout. PAST MEDICAL/SURGICAL HISTORY: 1. Recent L1 to S1 fusion and T11 to T12 laminectomy on 02/[address] Spain. 2. History of gout/pseudogout. 3. Hypertension. 4. GERD. 5. BPH with some worsening urinary retention. 6. Bilateral TKA. 7. Maxillary surgery. 8. Tonsillectomy. 9. Cataract surgery. 10. Appendectomy. MEDICATIONS: Please see medication reconciliation. ALLERGIES: No known drug allergies. 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 He is accompanied by his and daughter. He does not drink or smoke. FAMILY HISTORY: His brother also had issues with his back. REVIEW OF SYSTEMS: A 10-point review of systems is conducted and is negative except per HPI. PHYSICAL EXAM: VITAL SIGNS: Blood pressure 119/79, heart rate 93, initially 116. Respiratory rate 18, saturating 94% on room air. Temperature is 36.9. GENERAL: The patient is a pleasant man who is resting comfortably in no acute distress. HEENT: Shows him to be normocephalic, atraumatic. CARDI OVASCULAR: Regular rate and rhythm. No murmurs, rubs, or gallops. PULMONARY: Lungs clear to auscu ltation bilaterally. ABDOMEN: Soft, nontender, nondistended. SKIN: Shows no rash. : No Alexandra. NEUROLOGIC: Shows him to be alert and oriented x3. He is moving all extremities. EXTREMITIES: S hows his right foot to be quite swollen. It has an area of erythema which is warm. This has been de marcated with a pen. He has no skin breakdown in this area. He has no streaking and no inguinal lym phadenopathy. PSYCHIATRIC: Shows normal mood and affect. LABORATORY DATA: Notable for sodium of 134, potassium of 5.2. White count of 14.4, which is 80% bertha trophils with 6% bands. Platelets are 504. DATA: 1. I discussed this with Dr. Holland. We will admit to med/surg. 2. I reviewed his extremity duplex ultrasound. This was negative for a DVT. 3. Preliminary read on the x-ray of his foot is that he has a small fracture in the small toe. IMPRESSION/PLAN: 1. Right foot swelling: I suspect that this is cellulitis. We will treat as such with Ancef. Also consider that this could be atypical presentation of gout. Consider empiric steroid trial after dis cussing with Dr. Spain if that is necessary. He has a small fracture there. I do not think that th e fracture is the underlying cause of his pain, edema, and erythema. Follow his clinical response to antibiotics. 2. Small fracture in the small toe: He will be placed in a walking boot in the emergency department . He may follow up as needed with orthopedics. 3. Mild hyponatremia: We will recheck this tomorrow. This is quite mild. 4. Mild hyperkalemia: We will also follow this tomorrow. I will give him 1 L of normal saline. 5. Recent L1 to S1 fusion: This was done by Dr. Spain. He was sent in today by Dr. Spain, who is aware that he is here. 6. Gastroesophageal reflux disease: Protonix. 7. Benign prostatic hypertrophy: Flomax. 8. Hypertension: Continue his medications. /[id number]/MODL
[2018-02-19] MEDS ORDERED: PANTOPRAZOLE SODIUM 40 MG TAB PO PRN (17:23)
[2018-02-19] MEDS ORDERED: ALBUTEROL 60 PUFFS/8 GM MDI IH PRN (17:23)
[2018-02-19] MEDS ORDERED: METHOCARBAMOL 750 MG TAB PO PRN (17:23)
[2018-02-19] MEDS ORDERED: SILDENAFIL CITRATE 100 MG PO PRN (17:23)
[2018-02-19] MEDS ORDERED: GABAPENTIN 400 MG CAP PO PRN (17:30)
[2018-02-19] MEDS: oxyCODONE IR 5 MG TAB PO PRN (17:32)
[2018-02-19] MEDS ORDERED: TAMSULOSIN HCL 0.4 MG CAP PO SCH (21:00)
[2018-02-19] MEDS ORDERED: morphINE SR 15 MG TAB PO SCH (21:00)
[2018-02-19] MEDS: ceFAZolin 2 GM/DEXTROSE 100 ML IV SCH (21:16)
[2018-02-20 05:04] LABS: PLATELET COUNT 373 10^3/uL (150-400)
[2018-02-20] MEDS: ceFAZolin 2 GM/DEXTROSE 100 ML IV SCH ×2 (05:17→12:48)
[2018-02-20] MEDS: oxyCODONE IR 5 MG TAB PO PRN (08:55)
--- NOTE | 2018-02-20 11:12 | ASMTCMCOM ---
CM Note CM Note Notes: Spoke w/RN, per physical therapy, pt is cleared for home. Will dc w/support of when medically stable, CM available for any changes. DC Plan: Independent Date Signed: 02/20/2018 11:11 AM Electronically Signed By:Ronda Queen RN
[2018-02-20 11:59] VITALS: BP 113/70
--- NOTE | 2018-02-20 16:22 | GDS ---
[f rep st] DISCHARGE SUMMARY DISCHARGE DIAGNOSES: 1. Right foot cellulitis. 2. Small fracture at the base of the right 5th toe. 3. Recent L1-S1 fusion with hardware in place. 4. Gastroesophageal reflux disease. 5. Benign prostatic hypertrophy. 6. Hypertension. 7. Hyperkalemia, resolved. HISTORY: For details, please see History and Physical dated February 19, 2018. In brief, Mr. Cardozo is a 62-year-old male who recently underwent L1-S1 spinal fusion surgery 2 weeks prior to admission and presented to the emergency department with right foot pain. His condition wa s consistent with cellulitis. He was admitted to the hospital for further management. HOSPITAL COURSE: The patient admitted to the med/surg unit. A lower extremity ultrasound was negati ve for DVT. X-ray of the foot showed possible small fracture at the base of the right 5th toe. Tena juliette, he had no focal pain in this area. He was treated with IV Ancef and his erythema mostly resolve d the following morning. In addition, his white blood cell count normalized from 14,000 to 8000. He remained afebrile throughout the hospitalization. His blood cultures remained pending at discharge, though were negative for greater than 24 hours at this time. These should be followed up on to ensu re he is not bacteremic as that would increase his risk of seeding the hardware, that was recently pl aced in his lumbar spine. He had no evidence of sepsis and given the rapid improvement, patient wish ed to discharge home. DISPOSITION: Patient is discharged home in stable condition. FOLLOWUP: 1. Dr. Prosper Sanchez, primary care. 2. Dr. Gio Medina, Orthopedic Surgery. He is advised to continue to wear the walking boot until he has followup with Orthopedic Surgery. 3. Will request primary care followup in his blood cultures to ensure these remain negative. DISCHARGE MEDICATIONS: Please see [employer] completed outpatient medication list. New medications on discharge include Keflex 500 mg p.o. q.i.d.,#20, no refills. He will continue all other outpatient medications as previously prescribed. /[id number]/MODL
== END 2018-02-20 14:09 | disposition home or self-care (01) ==
LOC: INTOOBSV 15:49 → F3E 17:01
PROVIDERS: ADMIT Student in an Organized Health Care Education/Training Program; ATTEND Hospitalist
DX: L03.115 Cellulitis of right lower limb (principal); S92.511A Displaced fracture of proximal phalanx of right lesser toe(s), initial encounter for closed fracture; E87.5 Hyperkalemia; E87.1 Hypo-osmolality and hyponatremia; E86.9 Volume depletion, unspecified; M10.9 Gout, unspecified; M11.271 Other chondrocalcinosis, right ankle and foot; K21.9 Gastro-esophageal reflux disease without esophagitis; N40.0 Benign prostatic hyperplasia without lower urinary tract symptoms; I10 Essential (primary) hypertension; X58.XXXA Exposure to other specified factors, initial encounter; Z96.653 Presence of artificial knee joint, bilateral; Z98.890 Other specified postprocedural states; Z98.1 Arthrodesis status
CPT/HCPCS: 73630; 93971; 96374; 97116; 97161; 99285; G0378; G8978; G8979; G8980; J0690; J1885; L4386

== ENCOUNTER → 2018-05-03 | Outpatient (CLI) | payer OTHER | LOC: FIMAGING 09:30 | PROVIDERS: ATTEND Physician Assistant Surgical | DX: Z09 Encounter for follow-up examination after completed treatment for conditions other than malignant neoplasm (principal); G89.18 Other acute postprocedural pain; Z98.1 Arthrodesis status ==

== ENCOUNTER → 2018-07-21 | Outpatient (CLI) | payer OTHER | LOC: FIMAGING 09:37 | PROVIDERS: ATTEND Physician Assistant | DX: Z09 Encounter for follow-up examination after completed treatment for conditions other than malignant neoplasm (principal); Z98.1 Arthrodesis status; M48.04 Spinal stenosis, thoracic region; M47.894 Other spondylosis, thoracic region; M41.86 Other forms of scoliosis, lumbar region ==

== ENCOUNTER → 2018-08-06 | Outpatient (CLI) | payer OTHER | LOC: FIMAGING 10:22 | PROVIDERS: ATTEND Physician Assistant | DX: M48.04 Spinal stenosis, thoracic region (principal); M51.36 Other intervertebral disc degeneration, lumbar region; Z98.1 Arthrodesis status ==

== ENCOUNTER → 2018-09-11 | Outpatient (CLI) | payer OTHER | LOC: FIMAGING 13:27 | PROVIDERS: ATTEND Physician Assistant | DX: M48.04 Spinal stenosis, thoracic region (principal); M51.36 Other intervertebral disc degeneration, lumbar region; Z98.1 Arthrodesis status ==

== ENCOUNTER → 2019-02-03 | Outpatient (CLI) | payer OTHER | LOC: FIMAGING 11:57 ==